=== PATIENT | female | born 1955 | race Caucasian/White ===

== ENCOUNTER → 2017-10-26 12:22 | Outpatient (CLI) | payer OTHER, SELFPAY ==
--- NOTE | 2017-10-26 | DI.MG.S_ITS ---
BILATERAL DIGITAL SCREENING MAMMOGRAM 3D/2D WITH CAD: 10/26/2017 CLINICAL: Routine screening. Comparison is made to exams dated: 10/08/2016 mammogram - [facility], 07/30/2015 mammogram, and 07/11/2014 mammogram - [facility]. The tissue of both breasts is heterogeneously dense. This may lower the sensitivity of mammography. Current study was also evaluated with a Computer Aided Detection (CAD) system. No significant masses, calcifications, or other findings are seen in either breast. There has been no significant interval change. IMPRESSION: NEGATIVE There is no mammographic evidence of malignancy. A 1 year screening mammogram is recommended. This exam was interpreted at Station ID: [id number]. NOTE: For mammograms, a report in lay terms will be sent to the patient. Approximately 15% of breast malignancies will not be visualized mammographically. In the management of a palpable breast mass, a negative mammogram must not discourage biopsy of a clinically suspicious lesion. Electronically Signed By: Krunal forde/cain:10/27/2017 09:44:06 letter sent: Normal Exam ACR BI-RADS Category 1: Negative [id number]
== END ==
PROVIDERS: PCP Family Medicine; Visit Provider Family Medicine
DX: Z12.31 Encounter for screening mammogram for malignant neoplasm of breast (principal)
CPT/HCPCS: 77063; 77067

== ENCOUNTER → 2017-11-08 11:21 | Outpatient (CLI) | payer OTHER, SELFPAY ==
[2017-11-08 13:11] LABS: Alanine Aminotransferase 56 IU/L (9-52); Albumin 4.5 g/dL (3.5-5.0); Albumin Globulin Ratio 1.8 (1.0-2.8); Alkaline Phosphatase 64 U/L (38-126); Aspartate Aminotransferase 43 IU/L (14-36); Bilirubin Total 0.4 mg/dL (0.2-1.3); Bilirubin Unconjugated 0.2 mg/dL (0.0-1.1); Cholesterol 172 mg/dL (140-199); Globulin 2.5 g/dL (1.7-4.1); HDL Cholesterol 61 mg/dL (40-60); HEMOLYSIS < 15 (0-50); LDL Cholesterol Calculated 83 mg/dL (<100); Triglycerides 138 mg/dL (35-150)
== END ==
PROVIDERS: Visit Provider Family Medicine
DX: R79.89 Other specified abnormal findings of blood chemistry (principal); E78.5 Hyperlipidemia, unspecified
CPT/HCPCS: 36415; 80061; 80076

== ENCOUNTER → 2017-12-28 10:40 | Outpatient (CLI) | payer OTHER, SELFPAY ==
[2017-12-28 12:51] LABS: Cholesterol 137 mg/dL (140-199); HDL Cholesterol 52 mg/dL (40-60); LDL Cholesterol Calculated 63 mg/dL (<100); Triglycerides 110 mg/dL (35-150)
[2017-12-30 09:31] LABS: Hepatitis A Antibody IgM NONREACTIVE; Hepatitis Acute Panel Interp 0.01; Hepatitis B Core Antibody IgM NONREACTIVE; Hepatitis B Surface Antigen NONREACTIVE; Hepatitis C Antibody NONREACTIVE
== END ==
PROVIDERS: Visit Provider Family Medicine
DX: R79.89 Other specified abnormal findings of blood chemistry (principal); E78.5 Hyperlipidemia, unspecified
CPT/HCPCS: 36415; 80061; 80074

== ENCOUNTER → 2018-03-24 14:43 | Outpatient (CLI) | payer OTHER, SELFPAY | PROVIDERS: Visit Provider Family Medicine | DX: N63.20 Unspecified lump in the left breast, unspecified quadrant (principal); Z53.20 Procedure and treatment not carried out because of patient's decision for unspecified reasons ==

== ENCOUNTER → 2018-07-30 09:07 | Outpatient (CLI) | payer OTHER, SELFPAY ==
--- NOTE | 2018-07-30 09:09 | DI.RAD.S_ITS ---
PROCEDURE: XR CHEST 2V INDICATIONS: r/o pneumonia TECHNIQUE: 2 views of the chest were acquired. COMPARISON: None. FINDINGS: Surgical changes and devices: None. Lungs and pleura: There is pulmonary vascular prominence bilaterally with a basilar predominance suggestive of pulmonary edema. No pleural effusions or pneumothorax. Mediastinum: Mediastinal contours are normal. Heart size is normal. Bones and chest wall: No suspicious bony abnormalities. Soft tissues appear unremarkable. IMPRESSION: 1. Findings suggestive of nonspecific pulmonary edema which may be due to atypical pneumonia given clinical history. Dictated by: Juan C Ramsey M.D. on 07/30/2018 at 9:33 Approved by: Juan C Ramsey M.D. on 07/30/2018 at 9:34
== END ==
PROVIDERS: Visit Provider Physician Assistant
DX: R05 Cough (principal)
CPT/HCPCS: 71046

== ENCOUNTER 2018-08-12 09:45 | Inpatient (IN) | payer OTHER, SELFPAY ==
[2018-08-12] VITALS (10 sets, daily range): BP systolic 97–144; BP diastolic 52–89; PULSE 73–105; RESP 16–25; TEMP 35.8–36.8; O2SAT 88–96; BMI 31.6
--- NOTE | 2018-08-12 10:01 | DI.RAD.S_ITS ---
PROCEDURE: XR CHEST 2V INDICATIONS: SOB, cough TECHNIQUE: 2 views of the chest were acquired. COMPARISON: [facility], CR, XR CHEST 2V, 07/30/2018, 9:16. FINDINGS: Surgical changes and devices: None. Lungs and pleura: Decreased, mild bibasilar airspace opacity. No pleural effusions or pneumothorax. Mediastinum: Mediastinal contours are normal. Heart size is normal. Bones and chest wall: No suspicious bony abnormalities. Soft tissues appear unremarkable. IMPRESSION: Resolving bibasilar pneumonia. Continued plain film surveillance is recommended to ensure resolution, and to exclude underlying or central malignancy. Dictated by: Moraima Torres M.D. on 08/12/2018 at 10:28 Approved by: Moraima Torres M.D. on 08/12/2018 at 10:28
[2018-08-12] MEDS: ALBUTEROL/IPRATROPIUM 3 ML AMPUL INH ×2 (10:04→18:25)
[2018-08-12] MEDS: methylPREDNISolone 125 MG/2 ML VIAL IV (10:16)
[2018-08-12 10:18] LABS: Add Manual Diff / Slide Review NO; Basophils Absolute Auto 100 /uL (0-100); Basophils Percent Auto 1.1 % (0-2); Eosinophils Absolute Auto 400 /uL (0-450); Eosinophils Percent Auto 4.3 % (2-4); Hematocrit 36.4 % (36-46); Hemoglobin 12.1 g/dL (12.0-16.0); Lymphocytes Absolute Auto 1100 /uL (1100-4500); Lymphocytes Percent Auto 13.7 % (25-40); Mean Corpuscular HGB Conc 33.2 % (30-36); Mean Corpuscular Volume 93.4 fL (80-100); Monocytes Absolute Auto 1300 /uL (0-900); Monocytes Percent Auto 15.7 % (3-14); Neutrophils Absolute Auto 5400 /uL (1500-7000); Neutrophils Percent Auto 65.2 % (50-75); Platelet Count 355 X10^3/uL (150-400); Red Cell Distribution Width 13.6 % (11.6-14.8); White Blood Cell Count 8.3 X10^3/uL (4.5-11.0)
[2018-08-12] MEDS: SODIUM CHLORIDE 0.9% 1,000 ML 1000 ML IV (10:19)
[2018-08-12 10:27] LABS: D Dimer 581 ng/mL (<230)
[2018-08-12 10:30] LABS: Blood Urea Nitrogen 7 mg/dL (7-17); Calcium 9.2 mg/dL (8.4-10.2); Carbon Dioxide 22 mmol/L (22-32); Chloride 106 mmol/L (98-107); Creatine Kinase 85 U/L (30-135); Estimated Glomerular Filt Rate > 60.0 mL/min (>60); Glucose 108 mg/dL (80-110); HEMOLYSIS < 15 (0-50); Potassium 3.9 mmol/L (3.4-5.1); Sodium 138 mmol/L (137-145)
[2018-08-12 10:39] LABS: B Type Natriuretic Peptide < 100 (<100)
[2018-08-12 10:42] LABS: Troponin I < 0.012 ng/mL (0.01-0.034)
[2018-08-12 10:46] LABS: Procalcitonin < 0.05 ng/mL (<0.5)
--- NOTE | 2018-08-12 11:12 | DI.CT.S_ITS ---
PROCEDURE: CT ANGIO CHEST PE PROTOCOL INDICATIONS: SOB< chest pain, hypoxia, elevated DDimer TECHNIQUE: After the administration of intravenous contrast, 2 mm thick sections acquired from the pulmonary apices to the posterior costophrenic angles. 3-dimensional maximum intensity projection (MIP) coronal and sagittal reformats were then acquired through the thorax. For radiation dose reduction, the following was used: automated exposure control, adjustment of mA and/or kV according to patient size. COMPARISON: [facility], CR, XR CHEST 2V, 08/12/2018, 10:15. FINDINGS: Image quality: Excellent. Pulmonary arteries: Pulmonary arterial opacification is suboptimal. No definite filling defects to indicate pulmonary embolus. Lungs and pleura: Moderate bilateral mid and lower lung predominant air space opacity. Confluent ill-defined opacity within the right lung base posteriorly spanning roughly 50 mm. No pleural effusions or pneumothorax. Central and peripheral airways are patent. Mediastinum: Heart size is normal, without pericardial effusion. No evidence of coronary arterial calcification. 13 mm short axis right infrahilar adenopathy. 18 mm short axis right hilar adenopathy. 16 mm short axis subcarinal adenopathy. Thoracic aorta is normal in caliber and enhancement. Esophagus is normal in caliber. Small hiatal hernia. Bones and chest wall: No suspicious bony lesions. Ribs and thoracic spine appear intact throughout. Thyroid gland is within normal limits. No axillary or supraclavicular adenopathy. Abdomen: Visualized upper abdominal solid organs appear normal in the early arterial phase of enhancement. IMPRESSION: 1. Bilateral pneumonia, as seen by plain film. 2. Limited evaluation for pulmonary embolus demonstrating no definite central pulmonary embolus. 3. Mediastinal and hilar adenopathy, presumably representing reactive adenopathy. Confluent right lower lobe density, presumably representing focal pneumonitis. Followup chest CT with contrast in 3 months is recommended to exclude underlying malignancy. 4. Small hiatal hernia. Dictated by: Moraima Torres M.D. on 08/12/2018 at 11:35 Approved by: Moraima Torres M.D. on 08/12/2018 at 11:40
[2018-08-12] MEDS: CEFTRIAXONE 1 GM/50 ML FROZ.PIGGY IV (11:31)
--- NOTE | 2018-08-12 11:57 | ED_ITS ---
HPI - SOB/Dyspnea General Chief Complaint: Shortness of Breath/Dyspnea Stated Complaint: pneumonia/difficulty breathing Time Seen by Provider: 08/12/18 09:48 Source: patient and family Mode of arrival: ambulatory Limitations: no limitations History of Present Illness 63-year-old female former smoker with a history of hypertension and hyper lipidemia presents with worsening shortness of breath and productive cough of yellow sputum. She has had subjective chills. She denies chest pain and is not dizzy nor weak or lightheaded. She was seen and evaluated last week by the walk-in clinic and put on a Z-Enrique. She presents today feeling worse. She does not use home oxygen and has not been hospitalized in the past 15 or 20 years MD Complaint: shortness of breath and cough Onset (ago): hour(s) Context: recent illness Severity: moderate Consistency/Duration: constant Relieving factors: oxygen and rest Exacerbating factors: nothing Known history of: COPD Associated symptoms: fever Related Data Home oxygen amount: none Home Medications Medication Instructions Recorded Confirmed losartan 50 mg PO DAILY #0 05/29/16 08/12/18 zolpidem 5 mg PO BEDTIME PRN #0 05/29/16 08/12/18 metoprolol tartrate 50 mg tablet 50 mg PO QPM 07/30/18 08/12/18 rosuvastatin 10 mg tablet 10 mg PO DAILY 07/30/18 08/12/18 Allergies Allergy/AdvReac Type Severity Reaction Status Date / Time No Known Drug Allergies Allergy Verified 08/12/18 10:18 Review of Systems Constitutional Denies chills, Denies fever(s), Denies lethargy and Denies weakness Eyes Denies change in vision, Denies eye discharge, Denies irritation and Denies loss of vision ENT Ears, Nose, Mouth, and Throat: Denies change in voice, Denies neck pain and Den ies sore throat Cardiovascular Denies chest pain, Denies irregular heart rhythm, Denies lightheadedness, Denies palpitations, Reports dyspnea, Reports dyspnea on exertion and Denies orthopnea Respiratory Reports cough, Reports dyspnea, Reports dyspnea on exertion and Denies wheezing Gastrointestinal Gastrointestinal: Denies abdominal pain, Denies change in bowel habits, Denies diarrhea, Denies nausea and Denies vomiting Genitourinary Denies hematuria, Denies flank pain, Denies urinary incontinence and Denies urinary urgency Musculoskeletal Denies neck pain Integumentary/Breasts Denies pruritus, Denies erythema, Denies rash and Denies wounds Neurologic Denies confusion, Denies loss of vision and Denies weakness Psychiatric Denies anxiety, Denies confusion, Denies depression, Denies homicidal ideation and Denies suicidal ideation Endocrine Denies palpitations Hematologic/Lymphatic Denies easy bruising Allergic/Immunologic Denies wheezing PFSH Social History Smoking Status: Former smoker Social History Smoking Status: Former smoker Exam Narrative Exam Narrative: GENERAL: 63F in obvious distressed, trouble breathing HEAD: Atraumatic. Normocephalic. No temporal or scalp tenderness. EYES: Pupils equal round and reactive. Extraocular motions intact. No scleral icterus. No injection or drainage. ENT: Nose without bleeding, purulent drainage or septal hematoma. Throat without erythema, tonsillar hypertrophy or exudate. Uvula midline. Airway patent. NECK: Trachea midline. No JVD or lymphadenopathy. Supple, nontender, no meningeal signs. CARDIOVASCULAR: Regular rate and rhythm without murmurs, gallops, or rubs. RESPIRATORY: tachypnea, crackles in bases, prolonged expiratory phase GASTROINTESTINAL: Abdomen soft, non-tender, nondistended. No hepato- splenomegaly, or palpable masses. No guarding. EXTREMITIES: No clubbing, cyanosis, or edema. No joint tenderness, effusion, or edema noted. BACK: Nontender without deformity or crepitance. No flank tenderness. NEURO: AOx3. SKIN: No rash or erythema. Initial Vital Signs Initial Vital Signs: Vital Signs Temperature 97.4 F L 08/12/18 10:01 Pulse Rate 105 H 08/12/18 10:01 Respiratory Rate 22 08/12/18 10:01 Blood Pressure 122/89 08/12/18 10:01 Pulse Oximetry 88 L 08/12/18 10:01 Course Orders Ordered: ED Orders 08/12/18 10:01 XR chest 2V Stat 08/12/18 10:05 B Type Natriuretic Peptide Stat Basic Metabolic Panel Stat Complete Blood Count AUTO DIFF Stat D Dimer Stat Lactate (Lactic Acid) Stat Procalcitonin Stat Troponin & CK Cardiac Panel Stat 08/12/18 10:34 Blood Culture Stat 08/12/18 11:12 CT angio chest PE protocol Stat 08/12/18 12:08 Arterial Blood Gas Stat Discontinued Medications Albuterol/Ipratropium (Duoneb) 3 ml INH NOW ONE Stop: 08/12/18 10:02 Last Admin: 08/12/18 10:04 Dose: 3 ml Sodium Chloride (Normal Saline 0.9%) 1,000 mls @ 1,000 mls/hr IV BOLUS ONE Stop: 08/12/18 11:00 Last Admin: 08/12/18 10:19 Dose: 1,000 mls/hr Ceftriaxone Sodium/Dextrose (Rocephin) 1 gm in 50 mls @ 100 mls/hr IV NOW ONE Stop: 08/12/18 11:20 Last Infusion: 08/12/18 12:13 Dose: 0 mls/hr Admin: 08/12/18 11:31 Dose: 100 mls/hr Methylprednisolone (Solu-Medrol 125 Mg Vial) 125 mg IV NOW ONE Stop: 08/12/18 10:02 Last Admin: 08/12/18 10:16 Dose: 125 mg Vital Signs - 8 hr 08/12/18 10:01 08/12/18 10:54 Temperature 97.4 F L Pulse Rate 105 H 90 Respiratory Rate 22 18 Blood Pressure 122/89 Blood Pressure [Right Arm] 136/76 Pulse Oximetry 88 L 96 MDM - SOB/Dyspnea Lab Data Result diagrams: 08/12/18 10:05 08/12/18 10:05 Lab Results 08/12/18 08/12/18 08/12/18 Range/Units 10:05 10:05 10:05 WBC (4.5-11.0) X10^3/uL RBC (4.0-5.2) X10^6/uL Hgb (12.0-16.0) g/dL Hct (36-46) % MCV (80-100) fL MCH (26-34) PG MCHC (30-36) % RDW (11.6-14.8) % Plt Count (150-400) X10^3/uL Neut % (Auto) (50-75) % Lymph % (Auto) (25-40) % [place] % (Auto) (3-14) % Eos % (Auto) (2-4) % Baso % (Auto) (0-2) % Neut # (Auto) (1000-4839) /uL Lymph # (Auto) (8239-9869) /uL [place] # (Auto) (0-900) /uL Eos # (Auto) (0-450) /uL Baso # (Auto) (0-100) /uL D-Dimer 581 H (<230) ng/mL Sodium (137-145) mmol/L Potassium (3.4-5.1) mmol/L Chloride (98-107) mmol/L Carbon Dioxide (22-32) mmol/L BUN (7-17) mg/dL Creatinine (0.52-1.04) mg/dL Estimated GFR (>60) mL/min BUN/Creatinine Ratio (6-22) Glucose (80-110) mg/dL Lactate (0.7-2.1) mmol/L Calcium (8.4-10.2) mg/dL Total Creatine Kinase 85 (30-135) U/L CK-MB (CK-2) TNP CK-MB (CK-2) Rel Index TNP Troponin I < 0.012 (0.01-0.034) ng/mL B-Natriuretic Peptide < 100 (<100) Procalcitonin (<0.5) ng/mL 08/12/18 08/12/18 08/12/18 Range/Units 10:05 10:05 10:05 WBC 8.3 (4.5-11.0) X10^3/uL RBC 3.90 L (4.0-5.2) X10^6/uL Hgb 12.1 (12.0-16.0) g/dL Hct 36.4 (36-46) % MCV 93.4 (80-100) fL MCH 31.0 (26-34) PG MCHC 33.2 (30-36) % RDW 13.6 (11.6-14.8) % Plt Count 355 (150-400) X10^3/uL Neut % (Auto) 65.2 (50-75) % Lymph % (Auto) 13.7 L (25-40) % [place] % (Auto) 15.7 H (3-14) % Eos % (Auto) 4.3 H (2-4) % Baso % (Auto) 1.1 (0-2) % Neut # (Auto) 5400 (8673-1845) /uL Lymph # (Auto) 1100 (3430-3699) /uL [place] # (Auto) 1300 H (0-900) /uL Eos # (Auto) 400 (0-450) /uL Baso # (Auto) 100 (0-100) /uL D-Dimer (<230) ng/mL Sodium 138 (137-145) mmol/L Potassium 3.9 (3.4-5.1) mmol/L Chloride 106 (98-107) mmol/L Carbon Dioxide 22 (22-32) mmol/L BUN 7 (7-17) mg/dL Creatinine 0.70 (0.52-1.04) mg/dL Estimated GFR > 60.0 (>60) mL/min BUN/Creatinine Ratio 10.0 (6-22) Glucose 108 (80-110) mg/dL Lactate (0.7-2.1) mmol/L Calcium 9.2 (8.4-10.2) mg/dL Total Creatine Kinase (30-135) U/L CK-MB (CK-2) CK-MB (CK-2) Rel Index Troponin I (0.01-0.034) ng/mL B-Natriuretic Peptide (<100) Procalcitonin < 0.05 (<0.5) ng/mL 08/12/18 Range/Units 10:05 WBC (4.5-11.0) X10^3/uL RBC (4.0-5.2) X10^6/uL Hgb (12.0-16.0) g/dL Hct (36-46) % MCV (80-100) fL MCH (26-34) PG MCHC (30-36) % RDW (11.6-14.8) % Plt Count (150-400) X10^3/uL Neut % (Auto) (50-75) % Lymph % (Auto) (25-40) % [place] % (Auto) (3-14) % Eos % (Auto) (2-4) % Baso % (Auto) (0-2) % Neut # (Auto) (1271-7840) /uL Lymph # (Auto) (3609-4514) /uL [place] # (Auto) (0-900) /uL Eos # (Auto) (0-450) /uL Baso # (Auto) (0-100) /uL D-Dimer (<230) ng/mL Sodium (137-145) mmol/L Potassium (3.4-5.1) mmol/L Chloride (98-107) mmol/L Carbon Dioxide (22-32) mmol/L BUN (7-17) mg/dL Creatinine (0.52-1.04) mg/dL Estimated GFR (>60) mL/min BUN/Creatinine Ratio (6-22) Glucose (80-110) mg/dL Lactate 1.0 (0.7-2.1) mmol/L Calcium (8.4-10.2) mg/dL Total Creatine Kinase (30-135) U/L CK-MB (CK-2) CK-MB (CK-2) Rel Index Troponin I (0.01-0.034) ng/mL B-Natriuretic Peptide (<100) Procalcitonin (<0.5) ng/mL Imaging Data CT scan - chest: Radiologist's impression: [address] [address] [address] Scan Report Signed Patient: Alix Hernandez EMR#: [id number] : 6Acct:[id number] Age/Sex: 63 / FDate of Service: 08/12/18 Loc: ED Accession Number: [id number] Procedure: CT angio chest PE protocol Ordering Provider: Abdoulaye Hayden D.O. PROCEDURE: CT ANGIO CHEST PE PROTOCOL INDICATIONS: SOB< chest pain, hypoxia, elevated DDimer TECHNIQUE: After the administration of intravenous contrast, 2 mm thick sections acquired from the pulmonary apices to the posterior costophrenic angles. 3-dimensional maximum intensity projection (MIP) coronal and sagittal reformats were then acquired through the thorax. For radiation dose reduction, the following was used: automated exposure control, adjustment of mA and/or kV according to patient size. COMPARISON: [facility], CR, XR CHEST 2V, 08/12/2018, 10:15. FINDINGS: Image quality: Excellent. Pulmonary arteries: Pulmonary arterial opacification is suboptimal. No definite filling defects to indicate pulmonary embolus. Lungs and pleura: Moderate bilateral mid and lower lung predominant air space opacity. Confluent ill-defined opacity within the right lung base posteriorly spanning roughly 50 mm. No pleural effusions or pneumothorax. Central and peripheral airways are patent. Mediastinum: Heart size is normal, without pericardial effusion. No evidence of coronary arterial calcification. 13 mm short axis right infrahilar adenopathy. 18 mm short axis right hilar adenopathy. 16 mm short axis subcarinal adenopathy. Thoracic aorta is normal in caliber and enhancement. Esophagus is normal in caliber. Small hiatal hernia. Bones and chest wall: No suspicious bony lesions. Ribs and thoracic spine appear intact throughout. Thyroid gland is within normal limits. No axillary or supracl avicular adenopathy. Abdomen: Visualized upper abdominal solid organs appear normal in the early arterial phase of enhancement. IMPRESSION: 1. Bilateral pneumonia, as seen by plain film. 2. Limited evaluation for pulmonary embolus demonstrating no definite central pulmonary embolus. 3. Mediastinal and hilar adenopathy, presumably representing reactive adenopathy. Confluent right lower lobe density, presumably representing focal pneumonitis. Followup chest CT with contrast in 3 months is recommended to exclude underlying malignancy. 4. Small hiatal hernia. Dictated by: Moraima Torres M.D. on 08/12/2018 at 11:35 Approved by: Moraima Torres M.D. on 08/12/2018 at 11:40 Discharge Plan Departure Patient Disposition: Admitted As Inpatient Clinical Impression: Acute respiratory failure with hypoxia Community acquired pneumonia Qualifiers: Lung location: lower lobe of lung
--- NOTE | 2018-08-12 12:13 | PC.NURSE ---
Pt requested to get up to bathroom. Offered commode at this time. While pt up to commode on 4L, Pt's oxygen dropped to 84%. After getting back to bed was up to 92% after about 3 minutes. Provider ordered O2 to be removed for ABG. Pt dropped to as low as 84% on room air.
[2018-08-12 12:25] LABS: HCO3 ABG 19 mmol/L (22-26); Oxygen Saturation ABG 88 % (95-100); PCO2 ABG 28.7 mmHg (35-45); PO2 ABG 51 mmHg (80-100); TCO2 ABG 20 mmol/L (21-31); pH ABG 7.43 (7.35-7.45)
[2018-08-12 12:26] LABS: Fractionated Inspired Oxygen 21
--- NOTE | 2018-08-12 13:19 | PM.HP.1 ---
History of Present Illness Date Patient Seen: 08/12/18 Time Patient Seen: 13:19 Chief complaint: pneumonia/difficulty breathing Narrative: This is a 63-year-old female who presents with bibasilar pneumonia. She has been coughing for about 1 month with fevers up to 102.5, chills, sweats, pleuritic chest pain. A week ago she was started on azithromycin which she has taken without benefit so far. On presentation to the emergency department she was 84% on room air, rising to 93% on 4 L nasal cannula but dropping quickly when she sits up. Chest x-ray shows bibasilar pneumonia. The chest CT shows no PE but a follow-up CT in 3 months is recommended to look at these areas of pneumonia. She is a former smoker and is wheezing heavily, consistent with previously undiagnosed COPD. The fevers, cough have all improved but the extreme fatigue and dyspnea have become ?horrible? in the last week. Patient History Medical History Hypercholesteremia (Acute) Hypertension (Acute) Surgical History (Updated 08/12/18 @ 20:07 by Ruthie Bains MD) H/O foot surgery (Acute) History of bilateral tubal ligation (Acute) Hx laparoscopic cholecystectomy (Acute) Family History (Updated 08/12/18 @ 20:07 by Ruthie Bains MD) Father Lung cancer Mother Lung cancer Social History household members: spouse Smoking Status: Former smoker alcohol intake: current Family & Social History Family History (Updated 08/12/18 @ 20:07 by Ruthie Bains MD) Father Lung cancer Mother Lung cancer Social History: Her is her primary backup decision maker. She says she is full code except for wanting to avoid prolonged life support and would leave that decision up to her . She moved to [place] 2 years ago and still has her primary care physician Dr. Arelis Hurd at [place]. She is retired from working at [employer]. She stopped smoking 8 years ago. She drinks 1-2 glasses of wine per day. She denies marijuana. Safety & Behavioral: Feels Safe in Current Yes Environment Been Physically Hurt or No Threatened By a Person Tobacco & Substance use: Smoking Status Former smoker alcohol intake frequency a few times a month Substance Use Type does not use Meds Home Medications Medication Instructions Recorded Confirmed Type losartan 50 mg PO DAILY #0 05/29/16 08/12/18 History zolpidem 5 mg PO BEDTIME PRN #0 05/29/16 08/12/18 History metoprolol tartrate 50 mg tablet 50 mg PO QPM 07/30/18 08/12/18 History rosuvastatin 10 mg tablet 10 mg PO DAILY 07/30/18 08/12/18 History Allergies Allergy/AdvReac Type Severity Reaction Status Date / Time No Known Drug Allergies Allergy Verified 08/12/18 10:18 Review of Systems Review of Systems Positive for shortness of breath, fevers, chills, sweats, pleuritic chest pain, fatigue. Negative for nausea, vomiting, rashes, abdominal pain, bleeding, dysuria, joint pain, seizures, headaches, trouble walking, new allergies, sore throat. All systems reviewed & are unremarkable except as noted in HPI and below Exam Vital Signs (past 8 hours): - 08/12/18 10:01 08/12/18 10:54 Temperature 97.4 F L Pulse Rate 105 H 90 Respiratory Rate 22 18 Blood Pressure 122/89 Blood Pressure [Right Arm] 136/76 Pulse Oximetry 88 L 96 Oxygen Delivery Method Nasal Cannula Oxygen Flow Rate 4 Narrative Exam Narrative: She is alert and oriented x3. There is no apparent distress. Pupils are equally round and reactive to light and accommodation. Extraocular muscles are intact. Sclerae are pink and nonicteric. There is no thyromegaly. No carotid bruits are heard. JVD is less 6 cm No lymph nodes are felt head, neck, supraclavicular area. Heart is regular rate and rhythm without murmur. Lungs have wheezes throughout and crackles at the left base. Abdomen is soft, bowel sounds positive, no organomegaly, nontender. Extremities have no ankle edema. Skin no rash, jaundice, bruising. Neuro exam. Cranial nerves 2-12 tested intact. DTRs are symmetric bilaterally. Motor function is 5/5 throughout. Objective Labs Result Diagrams: 08/12/18 10:08/12/18 10:05 Labs: Laboratory Results - last 24 hr 08/12/18 08/12/18 08/12/18 10:05 10:05 10:05 WBC RBC Hgb Hct MCV MCH MCHC RDW Plt Count Neut % (Auto) Lymph % (Auto) [place] % (Auto) Eos % (Auto) Baso % (Auto) Neut # (Auto) Lymph # (Auto) [place] # (Auto) Eos # (Auto) Baso # (Auto) D-Dimer 581 H ABG pH ABG pCO2 ABG pO2 ABG HCO3 ABG Total CO2 ABG O2 Saturation ABG Base Excess FiO2 Sodium Potassium Chloride Carbon Dioxide BUN Creatinine Estimated GFR BUN/Creatinine Ratio Glucose Lactate Calcium Total Creatine Kinase 85 CK-MB (CK-2) TNP CK-MB (CK-2) Rel Index TNP Troponin I < 0.012 B-Natriuretic Peptide < 100 Procalcitonin 08/12/18 08/12/18 08/12/18 10:05 10:05 10:05 WBC 8.3 RBC 3.90 L Hgb 12.1 Hct 36.4 MCV 93.4 MCH 31.0 MCHC 33.2 RDW 13.6 Plt Count 355 Neut % (Auto) 65.2 Lymph % (Auto) 13.7 L [place] % (Auto) 15.7 H Eos % (Auto) 4.3 H Baso % (Auto) 1.1 Neut # (Auto) 5400 Lymph # (Auto) 1100 [place] # (Auto) 1300 H Eos # (Auto) 400 Baso # (Auto) 100 D-Dimer ABG pH ABG pCO2 ABG pO2 ABG HCO3 ABG Total CO2 ABG O2 Saturation ABG Base Excess FiO2 Sodium 138 Potassium 3.9 Chloride 106 Carbon Dioxide 22 BUN 7 Creatinine 0.70 Estimated GFR > 60.0 BUN/Creatinine Ratio 10.0 Glucose 108 Lactate Calcium 9.2 Total Creatine Kinase CK-MB (CK-2) CK-MB (CK-2) Rel Index Troponin I B-Natriuretic Peptide Procalcitonin < 0.05 08/12/18 08/12/18 10:05 12:08 WBC RBC Hgb Hct MCV MCH MCHC RDW Plt Count Neut % (Auto) Lymph % (Auto) [place] % (Auto) Eos % (Auto) Baso % (Auto) Neut # (Auto) Lymph # (Auto) [place] # (Auto) Eos # (Auto) Baso # (Auto) D-Dimer ABG pH 7.43 ABG pCO2 28.7 L ABG pO2 51 L ABG HCO3 19 L ABG Total CO2 20 L ABG O2 Saturation 88 L ABG Base Excess -5.0 L FiO2 21 Sodium Potassium Chloride Carbon Dioxide BUN Creatinine Estimated GFR BUN/Creatinine Ratio Glucose Lactate 1.0 Calcium Total Creatine Kinase CK-MB (CK-2) CK-MB (CK-2) Rel Index Troponin I B-Natriuretic Peptide Procalcitonin Assessment & Plan Assessment & Plan narrative: Bibasilar pneumonia -change from IV ceftriaxone/azithromycin to IV Piperocillin/tazobactam. -respiratory panel ordered Acute hypoxic respiratory failure -oxygen by nasal cannula, high flow/BiPAP as needed. She is full code. -respiratory therapy will be following closely. Apparent new diagnosis of COPD -begin IV Solu-Medrol -begin albuterol/Atrovent Hypertension -continue losartan, metoprolol. Hyperlipidemia -continue rosuvastatin
[2018-08-12] MEDS: AZITHROMYCIN 500 MG in DEXTROSE 5% IN WATER 250 ML IV (14:23)
[2018-08-12] MEDS: DEXTROSE 5%-0.9% NS 1,000 ML 100 ML IV (14:23)
--- NOTE | 2018-08-12 14:50 | PC.ADMIT ---
[id number] [facility] Admission Note: The patient,Alix Hernandez,63 y/o, was given written information regarding hospital policies, unit procedures and contact persons. Patient's smoking status: Former smoker. Vital Signs - 8 hr 08/12/18 10:01 08/12/18 10:54 08/12/18 14:11 Temperature 97.4 F L 97.9 F Pulse Rate 105 H 90 76 Respiratory Rate 22 18 25 H Blood Pressure 122/89 141/60 H Blood Pressure [Right Arm] 136/76 Pulse Oximetry 88 L 96 95 08/12/18 14:13 Temperature Pulse Rate Respiratory Rate Blood Pressure Blood Pressure [Right Arm] Pulse Oximetry 95 PATIENT ALERT ORIENTED X3. NO RESPIRATORY DISTRESS. SAT 95% ON 5L/NC W/ HUMIDIFICATION. REPORTS COUGH W/ YELLOW SPUTUM. ADMISSION ASSESSMENT COMPLETED. MRSA SWAB SENT. VSS.
[2018-08-12] MEDS: METOPROLOL IR 50 MG TABLET PO (17:25)
[2018-08-12] MEDS: methylPREDNISolone 125 MG/2 ML VIAL 60 MG IV (20:35)
[2018-08-12] MEDS: PIPERACILLIN-TAZO 3.375 GM/50 ML FROZ.PIGGY IV (20:35)
[2018-08-12] MEDS: ZOLPIDEM 5 MG TABLET PO (22:48)
[2018-08-13] VITALS (12 sets, daily range): BP systolic 126–135; BP diastolic 74–82; PULSE 64–78; RESP 17–21; TEMP 36.1–36.8; O2SAT 91–97
[2018-08-13] MEDS: DEXTROSE 5%-0.9% NS 1,000 ML 100 ML IV ×2 (01:37→13:26)
[2018-08-13] MEDS: PIPERACILLIN-TAZO 3.375 GM/50 ML FROZ.PIGGY IV ×4 (02:19→20:33)
[2018-08-13] MEDS: methylPREDNISolone 125 MG/2 ML VIAL 60 MG IV ×3 (04:32→20:33)
[2018-08-13 05:28] LABS: Add Manual Diff / Slide Review NO; Basophils Absolute Auto 0 /uL (0-100); Basophils Percent Auto 0.4 % (0-2); Eosinophils Absolute Auto 0 /uL (0-450); Eosinophils Percent Auto 0.1 % (2-4); Hematocrit 33.4 % (36-46); Hemoglobin 11.2 g/dL (12.0-16.0); Lymphocytes Absolute Auto 1100 /uL (1100-4500); Lymphocytes Percent Auto 11.6 % (25-40); Mean Corpuscular HGB Conc 33.4 % (30-36); Mean Corpuscular Hemoglobin 31.2 PG (26-34); Mean Corpuscular Volume 93.2 fL (80-100); Monocytes Absolute Auto 600 /uL (0-900); Neutrophils Absolute Auto 8000 /uL (1500-7000); Neutrophils Percent Auto 81.9 % (50-75); Platelet Count 359 X10^3/uL (150-400); Red Blood Cell Count 3.58 X10^6/uL (4.0-5.2); Red Cell Distribution Width 13.6 % (11.6-14.8); White Blood Cell Count 9.8 X10^3/uL (4.5-11.0)
[2018-08-13 05:41] LABS: Blood Urea Nitrogen 6 mg/dL (7-17); Calcium 8.7 mg/dL (8.4-10.2); Carbon Dioxide 20 mmol/L (22-32); Chloride 109 mmol/L (98-107); Estimated Glomerular Filt Rate > 60.0 mL/min (>60); Glucose 218 mg/dL (80-110); HEMOLYSIS < 15 (0-50); Potassium 3.8 mmol/L (3.4-5.1); Sodium 139 mmol/L (137-145)
--- NOTE | 2018-08-13 06:43 | PC.NURSE ---
Patient slept most of night, no respiratory distress, cough has decreased, and patient states she feels a little better since coming in here On 5L HFNC, SpO2 90-94%, rhonchi and crackles throughout. Bradycardic in 50s while asleep. Denies pain. Respiratory nasal panel collected and sent.
[2018-08-13] MEDS: ALBUTEROL/IPRATROPIUM 3 ML AMPUL INH ×4 (07:37→19:42)
[2018-08-13 08:01] LABS: Adenovirus Not Detected (Not Detect); Bordetella pertussis Not Detected (Not Detect); Chlamydophila pneumoniae Not Detected (Not Detect); Coronavirus 229E Not Detected (Not Detect); Coronavirus HKU1 Not Detected (Not Detect); Coronavirus NL 63 Not Detected (Not Detect); Coronavirus OC43 Not Detected (Not Detect); Human Metapneumovirus Not Detected (Not Detect); Human Rhinovirus/Enterovirus Not Detected (Not Detect); Influenza A Not Detected (Not Detect); Influenza B Not Detected (Not Detect); Mycoplasma pneumoniae Not Detected (Not Detect); Parainfluenza Virus 1 Not Detected (Not Detect); Parainfluenza Virus 2 Not Detected (Not Detect); Parainfluenza Virus 3 Not Detected (Not Detect); Parainfluenza Virus 4 Not Detected (Not Detect); Respiratory Syncytial Virus Not Detected (Not Detect)
[2018-08-13] MEDS: ROSUVASTATIN 10 MG TABLET PO (09:21)
[2018-08-13] MEDS: LOSARTAN 50 MG TABLET PO (09:22)
[2018-08-13] MEDS: ENOXAPARIN 40 MG/0.4 ML SYRINGE SUBCUT (09:22)
--- NOTE | 2018-08-13 11:20 | CM.DANOTE ---
DCP: Case received, EMR reviewed and met with patient. Introduced self and role. Was able to obtain baseline information from patient, regarding health. DCP template completed with information currently available. Patient is a 63 year old female who admitted yesterday afternoon to the care of the hospitalist team. PCP: Dr. Narayan in [place]. Payer: confirmed: Donald [employer]. Patient came to hospital secondary to difficulty breathing. She holds diagnosis of Bilateral Pneumonia. She is currently on oxygen. Met briefly with patient, alert and oriented. present in room. She stated that her primary doctor is in [place], and has been health, and had not had to see him very often. She also stated that her gets his care in [place] as well. Patient is independent at home. P: DCP to continue to follow. Anticipate that patient may be here for a couple more days. Plan is for home when stable. Shira Giles RN/Digital Media Director
--- NOTE | 2018-08-13 18:01 | PC.NURSE ---
1650- assumed care of pt from ICU. pt transferred. pt ambulates steady gait. uses call rebollar when appropriate. denies pain. belongings and call light within reach. will continue to monitor. on cont pox.
[2018-08-13] MEDS: METOPROLOL IR 50 MG TABLET PO (18:21)
--- NOTE | 2018-08-13 20:57 | PM.PN.1 ---
Subjective Date Patient Seen: 08/13/18 Interval history: This is a 63-year-old female former smoker admitted with bilateral pneumonia and failed outpatient therapy with full course of Z-Enrique. She had been sick for about a month with fevers and chills and pleuritic chest pain. Patient notes definite improvement since admission with less cough and less pleuritic chest pain. O2 requirements also improving. Exam Vital Signs (past 8 hours): - 08/13/18 14:32 08/13/18 16:10 08/13/18 16:45 Pulse Rate 72 Respiratory Rate Pulse Oximetry 91 96 91 08/13/18 19:43 Pulse Rate 64 Respiratory Rate 17 Pulse Oximetry 93 Oxygen Delivery Method Nasal Cannula Oxygen Flow Rate 2.5 Narrative Exam Narrative: General: Alert very pleasant female in no acute distress Lungs: Bibasilar crackles and faint wheeze in upper lungs Heart: Regular rhythm Extremities: No edema Neurological: Nonfocal Skin: No rash Objective Labs Result Diagrams: 08/13/18 04:53 08/13/18 04:53 Labs: Laboratory Results - last 24 hr 08/12/18 08/13/18 08/13/18 05:00 04:53 04:53 WBC 9.8 RBC 3.58 L Hgb 11.2 L Hct 33.4 L MCV 93.2 MCH 31.2 MCHC 33.4 RDW 13.6 Plt Count 359 Neut % (Auto) 81.9 H Lymph % (Auto) 11.6 L [place] % (Auto) 6.0 Eos % (Auto) 0.1 L Baso % (Auto) 0.4 Neut # (Auto) 8000 H Lymph # (Auto) 1100 [place] # (Auto) 600 Eos # (Auto) 0 Baso # (Auto) 0 Sodium 139 Potassium 3.8 Chloride 109 H Carbon Dioxide 20 L BUN 6 L Creatinine 0.60 Estimated GFR > 60.0 BUN/Creatinine Ratio 10.0 Glucose 218 H D Calcium 8.7 Chlamy pneumoniae PCR Not detected Adenovirus (PCR) Not detected B.parapertussis DNA PCR Not detected Coronavirus OC43 (PCR) Not detected Coronavirus HKU1 (PCR) Not detected Coronavirus 229E (PCR) Not detected Coronavirus NL63 (PCR) Not detected Human Metapneumovir PCR Not detected Influenza Type A (PCR) Not detected Influenza Type B (PCR) Not detected M. pneumoniae (PCR) Not detected Parainfluenza 1 (PCR) Not detected Parainfluenza 2 (PCR) Not detected Parainfluenza 3 (PCR) Not detected Parainfluenza 4 (PCR) Not detected RSV (PCR) Not detected Entero/Rhino (PCR) Not detected Assessment & Plan Assessment & Plan narrative: This is a 63-year-old female former smoker admitted with bilateral pneumonia and failed outpatient therapy with full course of Z-Enrique. She had been sick for about a month with fevers and chills and pleuritic chest pain. 1. Bibasilar pneumonia -subacute presentation of 1 month illness and failed Z-Enrique therapy -CTA showing bilateral pneumonia, mediastinal and hilar adenopathy, presumably reactive, confluency right lower lobe density presumably representing focal pneumonitis but follow-up CT with contrast recommended in 3 months to exclude underlying malignancy -patient is symptomatically improving -blood cultures negative -continue IV Piperocillin/tazobactam. -patient should have repeat contrast chest CT in 3 months to rule out underlying lung mass 2. Acute hypoxic respiratory failure -improving, currently on 2.5 L O2 with sat 97% -continue O2 nasal cannula. She is full code. 3. Apparent new diagnosis of COPD with exacerbation -continue IV Solu-Medrol 60 mg q.8 hours -continue albuterol/ipratropium nebulizer treatment 4. Hypertension -continue losartan, metoprolol. 5. Hyperlipidemia -continue rosuvastatin Patient with improving hospital course and hopefully can discharge in the next 1-2 days. Quality VTE Deep Vein Thrombosis/Pulmonary Embolism Present on Admission: No
[2018-08-14] VITALS (10 sets, daily range): BP systolic 116–142; BP diastolic 62–86; PULSE 49–74; RESP 15–21; TEMP 36.2–36.9; O2SAT 86–97
[2018-08-14] MEDS: ZOLPIDEM 5 MG TABLET PO ×2 (01:51→23:51)
[2018-08-14] MEDS: PIPERACILLIN-TAZO 3.375 GM/50 ML FROZ.PIGGY IV ×5 (02:00→23:52)
--- NOTE | 2018-08-14 02:57 | PC.NURSE ---
Bulb Assembler Note: 0030: Awake, resting in bed. Vital signs stable. Remains on O2 2L/humidified NC. IVs in place in rt wrist and lt upper forearm. Pt denies shortness of breath at this time. She denies discomfort. 0130: Medicated for sleep with Ambien 5mg po.
[2018-08-14] MEDS: methylPREDNISolone 125 MG/2 ML VIAL 60 MG IV ×2 (06:39→23:52)
[2018-08-14] MEDS: ALBUTEROL/IPRATROPIUM 3 ML AMPUL INH ×4 (07:40→18:22)
[2018-08-14] MEDS: ENOXAPARIN 40 MG/0.4 ML SYRINGE SUBCUT (08:33)
[2018-08-14] MEDS: LOSARTAN 50 MG TABLET PO (08:34)
[2018-08-14] MEDS: SODIUM CHLORIDE 0.9% FLUSH 10 ML IV ×2 (08:34→21:13)
[2018-08-14] MEDS: ROSUVASTATIN 10 MG TABLET PO (08:34)
[2018-08-14 13:53] LABS: Alanine Aminotransferase 90 IU/L (9-52); Albumin 3.5 g/dL (3.5-5.0); Albumin Globulin Ratio 1.2 (1.0-2.8); Alkaline Phosphatase 75 U/L (38-126); Aspartate Aminotransferase 57 IU/L (14-36); Bilirubin Total 0.3 mg/dL (0.2-1.3); Blood Urea Nitrogen 12 mg/dL (7-17); Calcium 9.4 mg/dL (8.4-10.2); Carbon Dioxide 23 mmol/L (22-32); Chloride 104 mmol/L (98-107); Estimated Glomerular Filt Rate > 60.0 mL/min (>60); Glucose 169 mg/dL (80-110); HEMOLYSIS < 15 (0-50); Potassium 3.3 mmol/L (3.4-5.1); Sodium 137 mmol/L (137-145); Total Protein 6.5 g/dL (6.3-8.2)
[2018-08-14 13:54] LABS: Hemoglobin A1C% w Est Avg Glu 5.9 % (4.0-6.0)
[2018-08-14] MEDS: guaiFENesin ER 600 MG TAB 1200 MG PO ×2 (14:03→21:14)
[2018-08-14 14:11] LABS: Procalcitonin < 0.05 ng/mL (<0.5)
--- NOTE | 2018-08-14 14:59 | PC.NURSE ---
Resp: This am was very sob, O2 sat down to the mid to high 80's. Heart rate 45-52 average. review of record shows no low heart rates however pt is reporting she has been low. Called [facility] Radha YAÑEZ who confirmed pt was in the 40's yesterday and 50's, heart rate did go back up during the day. Pt reports no c/p or heart problems. Takes for bp. O2 increased this am and RT called to treat and eval. They did give pt a neb and between that and increased O2 sats average about 90%. Pt seen later by Dr. Dong and she was notified of heart rate, o2 sats, cough, see new orders. discussed with pt her scan results and poc. O2 sats are to be 88% or greater. Have been able to titrate O2 back down to 2L and pt hopes it can go down even further. Pt understands we will keep monitoring her vital signs because she is worried about her bp getting to high being off the metoprolol. Pt reports she is feeling better this afternoon. Cont w/poc.
--- NOTE | 2018-08-14 18:14 | PM.PN.1 ---
Subjective Date Patient Seen: 08/14/18 Interval history: Alix Hernandez is a 63-year-old female with a past medical history significant for hypertension, hyperlipidemia, insomnia and former smoker admitted with bilateral pneumonia and failed outpatient therapy with full course of Z-Enrique. She had been sick for about a month with fevers, chills, and pleuritic chest pain. The patient is resting in bed comfortably and in no acute distress. She continues to feel improvement in her cough with less frequency and sputum production since admission. She continues to be on 2-3L of oxygen. She reports her appetite is fair. She reports she recently traveled in the last month to [place]. She stayed in the [facility]. She denies valley fever. She reports she has been sick just after she returned from that trip 4-5 weeks ago. She denies headache, chest pain, abdominal pain, nausea, vomiting, fever, chills, dysuria, diarrhea or constipation. She is voiding without difficulty. She has not had a BM since admission and implemented a bowel regimen. She is up ambulating with assistance. Exam Vital Signs (past 8 hours): - 08/14/18 11:12 08/14/18 15:07 Pulse Rate 52 L 69 Respiratory Rate 15 20 Pulse Oximetry 95 Oxygen Delivery Method Nasal Cannula Oxygen Flow Rate 3 Narrative Exam Narrative: General: Middle age female lying in bed and in no acute distress, well-developed, well-nourished, appropriately interactive. HEENT: Normocephalic, atraumatic. External ears without defect. Pupils equal, round, and reactive to light and accommodation. Anicteric sclerae, moist conjunctivae, and no lid lag. Oropharynx free of erythema and cobble stoning with moist mucosa. Neck: Supple with full range of motion. No lymphadenopathy or thyromegaly. Cardiovascular: Regular rate and rhythm without murmurs, rubs, or gallops appreciated. Pulmonary: Diminished and very tight throughout but clear to auscultation bilaterally without crackles, wheezes, or rhonchi. Normal respiratory effort with no use of accessory muscles. Abdomen: Soft, bowel sounds present, nontender, nondistended. No hepatosplenomegaly or masses appreciated. Extremities: No clubbing, cyanosis, or edema. Skin: Normal temperature, turgor, and texture; no rash, ulcers, or subcutaneous nodules appreciated. Neurological: Cranial nerves grossly intact. Psychiatric: Normal mood and affect. Alert and oriented to person, place, and time. Objective Labs Result Diagrams: 08/15/18 06:03 08/15/18 06:03 Labs: Laboratory Results - last 24 hr 08/14/18 08/14/18 08/14/18 13:15 13:15 13:15 Sodium 137 Potassium 3.3 L Chloride 104 Carbon Dioxide 23 BUN 12 Creatinine 0.80 Estimated GFR > 60.0 BUN/Creatinine Ratio 15.0 Glucose 169 H Hemoglobin A1c 5.9 Calcium 9.4 Total Bilirubin 0.3 AST 57 H ALT 90 H Alkaline Phosphatase 75 Total Protein 6.5 Albumin 3.5 Globulin 3.0 Albumin/Globulin Ratio 1.2 Procalcitonin < 0.05 Assessment & Plan Assessment & Plan narrative: Alix Hernandez is a 63-year-old female with a past medical history significant for hypertension, hyperlipidemia, insomnia and former smoker admitted with bilateral pneumonia and failed outpatient therapy with full course of Z-Enrique. She had been sick for about a month with fevers, chills, and pleuritic chest pain. 1. Acute bibasilar pneumonia, present on admission. Active. -Subacute presentation of 1 month illness and failed Z-Enrique therapy. -CTA showing bilateral pneumonia, mediastinal and hilar adenopathy, presumably reactive, confluency right lower lobe density presumably representing focal pneumonitis but follow-up CT with contrast recommended in 3 months to exclude underlying malignancy. -Ordered complete pneumonia workup including: Respiratory viral PCR negative. Strep pneumoniae and legionella urine antigens, pending as initially not ordered. Sputum culture, pending as not initially ordered. Blood cultures x2 have no growth to date. -Continue Zosyn 3.375 g IV every 8 hours for broad spectrum coverage. -Patient recently visited [place] close to (north of) [facility], presented without leukocytosis or positive infectious markers, had 4.8% eosinophilia on initial CBC, CT demonstrated bilateral mediastinal and hilar adenopathy, therefore, ordered Coccidioides Ab and Cryptococcus Ag, pending /send out. If not improving will treat empirically with fluconazole or itraconazole. Discussed with infectious disease from [facility] who agrees with plan. 2. Acute hypoxemic respiratory failure, present on admission. Active. -Secondary to underlying lung infection. -Currently on 2-3 L. Oxygen saturation goal 88% and will titrate off as tolerated. -Consulted respiratory therapy for evaluation and treatment. 3. Newly diagnosis COPD with acute exacerbation, present on admission. Active. -Continue IV Solu-Medrol decreased from 60 mg every 8 hours to every 12 hours. -Continue DuoNeb every 4 hours while awake and albuterol nebs every 2 hours as needed for shortness of breath. Added pulmicort 2 puffs daily. -Consulted respiratory therapy for evaluation and treatment. Ordered acapella and Mucinex 1200 mg twice daily to aide in mucus expectoration. -Also started montelukast 10 mg daily for season allergy component of airway disease. -Held beta chivo which may help breathing as below. 4. Acute hypokalemia, present on admission. Active. -Likely dilutional. -Ordered potassium chloride 40 mEQ PO x 1. Continue to monitor and replete as needed. 5. Hypertension, chronic, present on admission. Stable. -Continue losartan 50 mg daily. Held metoprolol tartrate 50 mg daily at bedtime as patient became significantly bradycardic on tele 40's last night plus may potentially worsen breathing. 6. Hyperlipidemia, chronic, present on admission. Stable. -Continue rosuvastatin 10 mg daily. Disposition: Likely to discharge home in several days depending on improvement in pneumonia with treatment. Quality VTE Deep Vein Thrombosis/Pulmonary Embolism Present on Admission: No
--- NOTE | 2018-08-14 18:55 | P.PN_ITS ---
Subjective Date Patient Seen: 08/14/18 Interval history: Alix Hernandez is a 63-year-old female with a past medical history significant for hypertension, hyperlipidemia, insomnia and former smoker admitted with b ilateral pneumonia and failed outpatient therapy with full course of Z-Enrique. She had been sick for about a month with fevers, chills, and pleuritic chest pain. The patient is resting in bed comfortably and in no acute distress. She continues to feel improvement in her cough with less frequency and sputum production since admission. She continues to be on 2-3L of oxygen. She reports her appetite is fair. She reports she recently traveled in the last month to [place]. She stayed in the [facility]. She denies valley fever. She reports she has been sick just after she returned from that trip 4-5 weeks ago. She denies headache, chest pain, abdominal pain, nausea, vomiting, fever, chills, dysuria, diarrhea or constipation. She is voiding without difficulty. She has not had a BM since admission and implemented a bowel regimen. She is up ambulating with assistance. Exam Vital Signs (past 8 hours): - 08/14/18 11:12 08/14/18 15:07 Pulse Rate 52 L 69 Respiratory Rate 15 20 Pulse Oximetry 95 Oxygen Delivery Method Nasal Cannula Oxygen Flow Rate 3 Narrative Exam Narrative: General: Middle age female lying in bed and in no acute distress, well- developed, well-nourished, appropriately interactive. HEENT: Normocephalic, atraumatic. External ears without defect. Pupils equal, round, and reactive to light and accommodation. Anicteric sclerae, moist conjunctivae, and no lid lag. Oropharynx free of erythema and cobble stoning with moist mucosa. Neck: Supple with full range of motion. No lymphadenopathy or thyromegaly. Cardiovascular: Regular rate and rhythm without murmurs, rubs, or gallops appreciated. Pulmonary: Diminished and very tight throughout but clear to auscultation bilate rally without crackles, wheezes, or rhonchi. Normal respiratory effort with no use of accessory muscles. Abdomen: Soft, bowel sounds present, nontender, nondistended. No hepatosplenomegaly or masses appreciated. Extremities: No clubbing, cyanosis, or edema. Skin: Normal temperature, turgor, and texture; no rash, ulcers, or subcutaneous nodules appreciated. Neurological: Cranial nerves grossly intact. Psychiatric: Normal mood and affect. Alert and oriented to person, place, and time. Objective Labs Result Diagrams: 08/15/18 06:03 08/15/18 06:03 Labs: Laboratory Results - last 24 hr 08/14/18 08/14/18 08/14/18 13:15 13:15 13:15 Sodium 137 Potassium 3.3 L Chloride 104 Carbon Dioxide 23 BUN 12 Creatinine 0.80 Estimated GFR > 60.0 BUN/Creatinine Ratio 15.0 Glucose 169 H Hemoglobin A1c 5.9 Calcium 9.4 Total Bilirubin 0.3 AST 57 H ALT 90 H Alkaline Phosphatase 75 Total Protein 6.5 Albumin 3.5 Globulin 3.0 Albumin/Globulin Ratio 1.2 Procalcitonin < 0.05 Assessment & Plan Assessment & Plan narrative: Alix Hernandez is a 63-year-old female with a past medical history significant for hypertension, hyperlipidemia, insomnia and former smoker admitted with bilateral pneumonia and failed outpatient therapy with full course of Z-Enrique. She had been sick for about a month with fevers, chills, and pleuritic chest pain. 1. Acute bibasilar pneumonia, present on admission. Active. -Subacute presentation of 1 month illness and failed Z-Enrique therapy. -CTA showing bilateral pneumonia, mediastinal and hilar adenopathy, presumably reactive, confluency right lower lobe density presumably representing focal pneumonitis but follow-up CT with contrast recommended in 3 months to exclude underlying malignancy. -Ordered complete pneumonia workup including: Respiratory viral PCR negative. Strep pneumoniae and legionella urine antigens, pending as initially not ordered. Sputum culture, pending as not initially ordered. Blood cultures x2 have no growth to date. -Continue Zosyn 3.375 g IV every 8 hours for broad spectrum coverage. -Patient recently visited [place] close to (north of) [facility], presented without leukocytosis or positive infectious markers, had 4.8% eosinophilia on initial CBC, CT demonstrated bilateral mediastinal and hilar adenopathy, therefore, ordered Coccidioides Ab and Cryptococcus Ag, pending /send out. If not improving will treat empirically with fluconazole or itraconazole. Discussed with infectious disease from [facility] who agrees with plan. 2. Acute hypoxemic respiratory failure, present on admission. Active. -Secondary to underlying lung infection. -Currently on 2-3 L. Oxygen saturation goal 88% and will titrate off as tolerated. -Consulted respiratory therapy for evaluation and treatment. 3. Newly diagnosis COPD with acute exacerbation, present on admission. Active. -Continue IV Solu-Medrol decreased from 60 mg every 8 hours to every 12 hours. -Continue DuoNeb every 4 hours while awake and albuterol nebs every 2 hours as needed for shortness of breath. Added pulmicort 2 puffs daily. -Consulted respiratory therapy for evaluation and treatment. Ordered acapella and Mucinex 1200 mg twice daily to aide in mucus expectoration. -Also started montelukast 10 mg daily for season allergy component of airway disease. -Held beta chivo which may help breathing as below. 4. Acute hypokalemia, present on admission. Active. -Likely dilutional. -Ordered potassium chloride 40 mEQ PO x 1. Continue to monitor and replete as needed. 5. Hypertension, chronic, present on admission. Stable. -Continue losartan 50 mg daily. Held metoprolol tartrate 50 mg daily at bedtime as patient became significantly bradycardic on tele 40's last night plus may potentially worsen breathing. 6. Hyperlipidemia, chronic, present on admission. Stable. -Continue rosuvastatin 10 mg daily. Disposition: Likely to discharge home in several days depending on improvement in pneumonia with treatment. Quality VTE Deep Vein Thrombosis/Pulmonary Embolism Present on Admission: No
[2018-08-14] MEDS: POTASSIUM CHLORIDE 10 MEQ TAB 40 MEQ PO (21:14)
[2018-08-15] VITALS (12 sets, daily range): BP systolic 140–157; BP diastolic 77–83; PULSE 49–68; RESP 14–20; TEMP 36.1–36.6; O2SAT 90–98
--- NOTE | 2018-08-15 00:01 | PC.NURSE ---
[employer] Intern Note: 2345: Awake, asking for sleeping pill. Vital signs stable. IV in place in lt AC. Pt remains on O2 2L/humidified NC. Medicated for sleep with Ambien 5mg.
[2018-08-15] MEDS: PIPERACILLIN-TAZO 3.375 GM/50 ML FROZ.PIGGY IV ×4 (06:10→23:46)
[2018-08-15 06:28] LABS: Hematocrit 31.7 % (36-46); Hemoglobin 11.1 g/dL (12.0-16.0); Mean Corpuscular HGB Conc 35.1 % (30-36); Mean Corpuscular Hemoglobin 32.5 PG (26-34); Mean Corpuscular Volume 92.6 fL (80-100); Platelet Count 364 X10^3/uL (150-400); Red Blood Cell Count 3.43 X10^6/uL (4.0-5.2); Red Cell Distribution Width 13.7 % (11.6-14.8); White Blood Cell Count 9.2 X10^3/uL (4.5-11.0)
[2018-08-15 06:34] LABS: Add Manual Diff / Slide Review YES; Alanine Aminotransferase 93 IU/L (9-52); Albumin 3.3 g/dL (3.5-5.0); Albumin Globulin Ratio 1.1 (1.0-2.8); Alkaline Phosphatase 63 U/L (38-126); Aspartate Aminotransferase 58 IU/L (14-36); BUN Creatinine Ratio 18.6 (6-22); Bilirubin Total 0.3 mg/dL (0.2-1.3); Blood Urea Nitrogen 13 mg/dL (7-17); Calcium 9.4 mg/dL (8.4-10.2); Carbon Dioxide 22 mmol/L (22-32); Chloride 107 mmol/L (98-107); Estimated Glomerular Filt Rate > 60.0 mL/min (>60); Globulin 2.9 g/dL (1.7-4.1); Glucose 170 mg/dL (80-110); HEMOLYSIS < 15 (0-50); Magnesium 2.2 mg/dL (1.6-2.3); Potassium 4.8 mmol/L (3.4-5.1); Sodium 138 mmol/L (137-145); Total Protein 6.2 g/dL (6.3-8.2)
[2018-08-15 07:21] LABS: Procalcitonin < 0.05 ng/mL (<0.5)
[2018-08-15 07:27] LABS: Neutrophils Absolute Manual 7084 /uL (3000-5900); Total Cells Counted 100
[2018-08-15 07:28] LABS: Toxic Vacuolation Present
[2018-08-15] MEDS: ALBUTEROL/IPRATROPIUM 3 ML AMPUL INH ×4 (08:59→20:34)
[2018-08-15] MEDS: BUDESONIDE 60 PUFF/DEVICE INHALER INH (09:10)
[2018-08-15] MEDS: ENOXAPARIN 40 MG/0.4 ML SYRINGE SUBCUT (10:11)
[2018-08-15] MEDS: guaiFENesin ER 600 MG TAB 1200 MG PO ×2 (10:11→20:26)
[2018-08-15] MEDS: ROSUVASTATIN 10 MG TABLET PO (10:12)
[2018-08-15] MEDS: LOSARTAN 50 MG TABLET PO (10:12)
[2018-08-15] MEDS: MONTELUKAST 10 MG TABLET PO (10:14)
--- NOTE | 2018-08-15 11:10 | PC.NURSE ---
AM Shift pt AO and receptive to care. Lung sounds clear bilaterally and throughout, but pt states that this is the first time since her admission. Denying pain, reporting mild SOB, on O2, 2L NC and 02 sat is 95-97%. Ambulating in room IND and in hallways with and O2 tank. Sputum sample and UA sample collected and sent. Sputum is pending culture (few WBC's seen on gram stain). Tolerating a regular diet, but reports decreased appetite.
[2018-08-15] MEDS: SODIUM CHLORIDE 0.9% FLUSH 10 ML IV ×3 (12:21→20:26)
[2018-08-15] MEDS: methylPREDNISolone 125 MG/2 ML VIAL 60 MG IV (13:07)
--- NOTE | 2018-08-15 16:36 | PM.PN.1 ---
Subjective Date Patient Seen: 08/15/18 Interval history: Alix Hernandez is a 63-year-old female with a past medical history significant for hypertension, hyperlipidemia, insomnia and former smoker admitted with bilateral pneumonia and failed outpatient therapy with full course of Z-Enrique. She had been sick for about a month with fevers, chills, and pleuritic chest pain. The patient is resting in bedside chair comfortably and in no acute distress. She endorses improvement in her breathing and no longer feels short of breath. She reports she continues to have less frequent cough with decreased sputum production. She continues to breathe shallow as she feels this is less likely to stimulate her coughing but denies pleuritic chest pain. Encouraged her not to shallow breath. She is now off oxygen. She was started on montelukast and a steroid inhaler yesterday to help decrease inflammation of the airways. Revisited her recent trip to [place] from 07/13-07/19, in which she [place] the [place] and only stayed 1 day and night in [place], [place]. Coccidioides Ab and cryptococcus Ag have been sent but now believe these are less likely as the patient was not in [place] for an extended period of time and she continues to improve with solely antibiotics. Sputum culture was also collected. She denies headache, sore throat, chest pain, shortness of breath, abdominal pain, nausea, vomiting, fever, chills, dysuria, diarrhea or constipation. She is voiding and eliminating without difficulty. She is up ambulating without assistance. Exam Vital Signs (past 8 hours): - 08/15/18 08:59 08/15/18 09:13 08/15/18 10:30 Temperature Pulse Rate 55 L 55 L Respiratory Rate 14 14 Blood Pressure Pulse Oximetry 95 95 97 08/15/18 13:25 08/15/18 15:35 Temperature 97.9 F Pulse Rate 51 L 50 L Respiratory Rate 17 18 Blood Pressure 146/83 H Pulse Oximetry 94 90 L Oxygen Delivery Method Room Air Oxygen Flow Rate 2 Narrative Exam Narrative: General: Older female lying in bed and in no acute distress, well-developed, well-nourished, appropriately interactive. HEENT: Normocephalic, atraumatic. External ears without defect. Pupils equal, round, and reactive to light. Anicteric sclerae, moist conjunctivae, and no lid lag. Neck: Supple with full range of motion. No lymphadenopathy or thyromegaly. Cardiovascular: Regular rate and rhythm without murmurs, rubs, or gallops appreciated. Pulmonary: Lungs loosening up with significant improvement in aeration, clear throughout with fine bibasilar crackles. No wheezes or rhonchi. Normal respiratory effort with no use of accessory muscles. Abdomen: Soft, bowel sounds present, nontender, nondistended. No hepatosplenomegaly or masses appreciated. Extremities: No clubbing, cyanosis, or edema. Skin: Normal temperature, turgor, and texture; no rash, ulcers, or subcutaneous nodules appreciated. Neurological: Cranial nerves grossly intact. Psychiatric: Normal mood and affect. Alert and oriented to person, place, and time. Objective Labs Result Diagrams: 08/15/18 06:03 08/15/18 06:03 Labs: Laboratory Results - last 24 hr 08/15/18 08/15/18 08/15/18 06:03 06:03 06:03 WBC 9.2 RBC 3.43 L Hgb 11.1 L Hct 31.7 L MCV 92.6 MCH 32.5 MCHC 35.1 RDW 13.7 Plt Count 364 Neut % (Auto) Not Reportable Lymph % (Auto) Not Reportable Heard % (Auto) Not Reportable Eos % (Auto) Not Reportable Baso % (Auto) Not Reportable Lymph # (Auto) Not Reportable Heard # (Auto) Not Reportable Baso # (Auto) Not Reportable Total Counted 100 Seg Neutrophils % 72.0 H Band Neutrophils % 5.0 Lymphocytes % (Manual) 8.0 L Atypical Lymphs % 3.0 H Monocytes % (Manual) 11.0 Metamyelocytes % 1.0 H Neutrophils # (Manual) 7084 H Toxic Vacuolation Present H RBC Morphology See below Sodium Potassium Chloride Carbon Dioxide BUN Creatinine Estimated GFR BUN/Creatinine Ratio Glucose Calcium Magnesium Total Bilirubin AST ALT Alkaline Phosphatase Total Protein Albumin Globulin Albumin/Globulin Ratio Procalcitonin < 0.05 Specimen Source Cancelled Cryptococcal Ag (Latex) Cancelled 08/15/18 06:03 WBC RBC Hgb Hct MCV MCH MCHC RDW Plt Count Neut % (Auto) Lymph % (Auto) Heard % (Auto) Eos % (Auto) Baso % (Auto) Lymph # (Auto) Heard # (Auto) Baso # (Auto) Total Counted Seg Neutrophils % Band Neutrophils % Lymphocytes % (Manual) Atypical Lymphs % Monocytes % (Manual) Metamyelocytes % Neutrophils # (Manual) Toxic Vacuolation RBC Morphology Sodium 138 Potassium 4.8 D Chloride 107 Carbon Dioxide 22 BUN 13 Creatinine 0.70 Estimated GFR > 60.0 BUN/Creatinine Ratio 18.6 Glucose 170 H Calcium 9.4 Magnesium 2.2 Total Bilirubin 0.3 AST 58 H ALT 93 H Alkaline Phosphatase 63 Total Protein 6.2 L Albumin 3.3 L Globulin 2.9 Albumin/Globulin Ratio 1.1 Procalcitonin Specimen Source Cryptococcal Ag (Latex) Assessment & Plan Assessment & Plan narrative: Alix Hernandez is a 63-year-old female with a past medical history significant for hypertension, hyperlipidemia, insomnia and former smoker admitted with bilateral pneumonia and failed outpatient therapy with full course of Z-Enrique. She had been sick for about a month with fevers, chills, and pleuritic chest pain. 1. Acute bibasilar pneumonia, present on admission. Active. -Subacute presentation of 1 month illness and failed Z-Enrique therapy. -CTA showing bilateral pneumonia, mediastinal and hilar adenopathy, presumably reactive, confluency right lower lobe density presumably representing focal pneumonitis but follow-up CT with contrast recommended in 3 months to exclude underlying malignancy. -Ordered complete pneumonia workup including: Respiratory viral PCR negative. Strep pneumoniae and legionella urine antigens, pending as initially not ordered. Sputum culture, pending as not initially ordered. Blood cultures x2 have no growth to date. -Continue Zosyn 3.375 g IV every 8 hours and will plan to convert to PO antibiotics tomorrow if continuing to improve. -Patient recently visited [facility]. She traveled from [place]/13-07/19 [facility] staying in [place], [place] one night. She presented without leukocytosis or positive infectious markers, had 4.8% eosinophilia on initial CBC, CT demonstrated bilateral mediastinal and hilar adenopathy, therefore, ordered Coccidioides Ab and Cryptococcus Ag, pending /send out. If not improving will treat empirically with fluconazole or itraconazole. However, patient is improving solely with antibiotics and did not have an extended stay in [place], therefore, less likely fungal. Discussed with infectious disease from [facility] who agrees with plan. 2. Acute hypoxemic respiratory failure, present on admission. Resolved. -Secondary to underlying lung infection. -Now off oxygen. May use supplemental oxygen as needed with oxygen saturation goal 88%. -Consulted respiratory therapy for evaluation and treatment. 3. Newly diagnosis COPD with acute exacerbation, present on admission. Active. -Continue to titrate off of glucocorticoids. Stopped IV methylprednisolone today and will start prednisone 40 mg daily to finish burst tomorrow. -Continue DuoNeb every 4 hours while awake and albuterol nebs every 2 hours as needed for shortness of breath. Added pulmicort 2 puffs daily. -Consulted respiratory therapy for evaluation and treatment. Ordered acapella and Mucinex 1200 mg twice daily to aide in mucus expectoration. -Started and continue montelukast 10 mg daily for season allergy component of airway disease. -Held beta chivo which may help breathing as below. 4. Acute hypokalemia, present on admission. Resolved. -Likely dilutional. -Received potassium chloride 40 mEQ PO x 1. Continue to monitor and replete as needed. 5. Hypertension, chronic, present on admission. Stable. -Continue losartan 50 mg daily. Held metoprolol tartrate 50 mg daily at bedtime as patient became significantly bradycardic on tele 40's last night plus may potentially worsen breathing. 6. Hyperlipidemia, chronic, present on admission. Stable. -Continue rosuvastatin 10 mg daily. Disposition: Likely to discharge home in 1-2 days if she continues to improve with empiric treatment of bacterial pneumonia. Quality VTE Deep Vein Thrombosis/Pulmonary Embolism Present on Admission: No
--- NOTE | 2018-08-15 16:45 | P.PN_ITS ---
Subjective Date Patient Seen: 08/15/18 Interval history: Alix Hernandez is a 63-year-old female with a past medical history significant for hypertension, hyperlipidemia, insomnia and former smoker admitted with bi lateral pneumonia and failed outpatient therapy with full course of Z-Enrique. She had been sick for about a month with fevers, chills, and pleuritic chest pain. The patient is resting in bedside chair comfortably and in no acute distress. She endorses improvement in her breathing and no longer feels short of breath. She reports she continues to have less frequent cough with decreased sputum prod uction. She continues to breathe shallow as she feels this is less likely to stimulate her coughing but denies pleuritic chest pain. Encouraged her not to shallow breath. She is now off oxygen. She was started on montelukast and a steroid inhaler yesterday to help decrease inflammation of the airways. Revisited her recent trip to [place] from 07/13-07/19, in which she [place] they drove [place] the coast and only stayed 1 day and night in [place], [place]. Coccidioides Ab and cryptococcus Ag have been sent but now believe these are less likely as the patient was not in [place] for an extended period of time and she continues to improve with solely antibiotics. Sputum culture was also collected. She denies headache, sore throat, chest pain, shortness of breath, abdominal pain, nausea, vomiting, fever, chills, dysuria, diarrhea or constipation. She is voiding and eliminating without difficulty. She is up ambulating without assistance. Exam Vital Signs (past 8 hours): - 08/15/18 08:59 08/15/18 09:13 08/15/18 10:30 Temperature Pulse Rate 55 L 55 L Respiratory Rate 14 14 Blood Pressure Pulse Oximetry 95 95 97 08/15/18 13:25 08/15/18 15:35 Temperature 97.9 F Pulse Rate 51 L 50 L Respiratory Rate 17 18 Blood Pressure 146/83 H Pulse Oximetry 94 90 L Oxygen Delivery Method Room Air Oxygen Flow Rate 2 Narrative Exam Narrative: General: Older female lying in bed and in no acute distress, well-developed, well-nourished, appropriately interactive. HEENT: Normocephalic, atraumatic. External ears without defect. Pupils equal, round, and reactive to light. Anicteric sclerae, moist conjunctivae, and no lid lag. Neck: Supple with full range of motion. No lymphadenopathy or thyromegaly. Cardiovascular: Regular rate and rhythm without murmurs, rubs, or gallops appreciated. Pulmonary: Lungs loosening up with significant improvement in aeration, clear throughout with fine bibasilar crackles. No wheezes or rhonchi. Normal respiratory effort with no use of accessory muscles. Abdomen: Soft, bowel sounds present, nontender, nondistended. No hep atosplenomegaly or masses appreciated. Extremities: No clubbing, cyanosis, or edema. Skin: Normal temperature, turgor, and texture; no rash, ulcers, or subcutaneous nodules appreciated. Neurological: Cranial nerves grossly intact. Psychiatric: Normal mood and affect. Alert and oriented to person, place, and time. Objective Labs Result Diagrams: 08/15/18 06:03 08/15/18 06:03 Labs: Laboratory Results - last 24 hr 08/15/18 08/15/18 08/15/18 06:03 06:03 06:03 WBC 9.2 RBC 3.43 L Hgb 11.1 L Hct 31.7 L MCV 92.6 MCH 32.5 MCHC 35.1 RDW 13.7 Plt Count 364 Neut % (Auto) Not Reportable Lymph % (Auto) Not Reportable [place] % (Auto) Not Reportable Eos % (Auto) Not Reportable Baso % (Auto) Not Reportable Lymph # (Auto) Not Reportable [place] # (Auto) Not Reportable Baso # (Auto) Not Reportable Total Counted 100 Seg Neutrophils % 72.0 H Band Neutrophils % 5.0 Lymphocytes % (Manual) 8.0 L Atypical Lymphs % 3.0 H Monocytes % (Manual) 11.0 Metamyelocytes % 1.0 H Neutrophils # (Manual) 7084 H Toxic Vacuolation Present H RBC Morphology See below Sodium Potassium Chloride Carbon Dioxide BUN Creatinine Estimated GFR BUN/Creatinine Ratio Glucose Calcium Magnesium Total Bilirubin AST ALT Alkaline Phosphatase Total Protein Albumin Globulin Albumin/Globulin Ratio Procalcitonin < 0.05 Specimen Source Cancelled Cryptococcal Ag (Latex) Cancelled 08/15/18 06:03 WBC RBC Hgb Hct MCV MCH MCHC RDW Plt Count Neut % (Auto) Lymph % (Auto) [place] % (Auto) Eos % (Auto) Baso % (Auto) Lymph # (Auto) [place] # (Auto) Baso # (Auto) Total Counted Seg Neutrophils % Band Neutrophils % Lymphocytes % (Manual) Atypical Lymphs % Monocytes % (Manual) Metamyelocytes % Neutrophils # (Manual) Toxic Vacuolation RBC Morphology Sodium 138 Potassium 4.8 D Chloride 107 Carbon Dioxide 22 BUN 13 Creatinine 0.70 Estimated GFR > 60.0 BUN/Creatinine Ratio 18.6 Glucose 170 H Calcium 9.4 Magnesium 2.2 Total Bilirubin 0.3 AST 58 H ALT 93 H Alkaline Phosphatase 63 Total Protein 6.2 L Albumin 3.3 L Globulin 2.9 Albumin/Globulin Ratio 1.1 Procalcitonin Specimen Source Cryptococcal Ag (Latex) Assessment & Plan Assessment & Plan narrative: Alix Hernandez is a 63-year-old female with a past medical history significant for hypertension, hyperlipidemia, insomnia and former smoker admitted with bilateral pneumonia and failed outpatient therapy with full course of Z-Enrique. She had been sick for about a month with fevers, chills, and pleuritic chest pain. 1. Acute bibasilar pneumonia, present on admission. Active. -Subacute presentation of 1 month illness and failed Z-Enrique therapy. -CTA showing bilateral pneumonia, mediastinal and hilar adenopathy, presumably reactive, confluency right lower lobe density presumably representing focal pneumonitis but follow-up CT with contrast recommended in 3 months to exclude underlying malignancy. -Ordered complete pneumonia workup including: Respiratory viral PCR negative. Strep pneumoniae and legionella urine antigens, pending as initially not ordered. Sputum culture, pending as not initially ordered. Blood cultures x2 have no growth to date. -Continue Zosyn 3.375 g IV every 8 hours and will plan to convert to PO antibiotics tomorrow if continuing to improve. -Patient recently visited [facility]. She traveled from 07/13-07/19 down the [facility] staying in [place], [place] one night. She presented without leukocytosis or positive infectious markers, had 4.8% eosinophilia on i nitial CBC, CT demonstrated bilateral mediastinal and hilar adenopathy, therefore, ordered Coccidioides Ab and Cryptococcus Ag, pending /send out. If not improving will treat empirically with fluconazole or itraconazole. However, patient is improving solely with antibiotics and did not have an extended stay in [place], therefore, less likely fungal. Discussed with infectious disease from [facility] who agrees with plan. 2. Acute hypoxemic respiratory failure, present on admission. Resolved. -Secondary to underlying lung infection. -Now off oxygen. May use supplemental oxygen as needed with oxygen saturation goal 88%. -Consulted respiratory therapy for evaluation and treatment. 3. Newly diagnosis COPD with acute exacerbation, present on admission. Active. -Continue to titrate off of glucocorticoids. Stopped IV methylprednisolone today and will start prednisone 40 mg daily to finish burst tomorrow. -Continue DuoNeb every 4 hours while awake and albuterol nebs every 2 hours as needed for shortness of breath. Added pulmicort 2 puffs daily. -Consulted respiratory therapy for evaluation and treatment. Ordered acapella and Mucinex 1200 mg twice daily to aide in mucus expectoration. -Started and continue montelukast 10 mg daily for season allergy component of airway disease. -Held beta chivo which may help breathing as below. 4. Acute hypokalemia, present on admission. Resolved. -Likely dilutional. -Received potassium chloride 40 mEQ PO x 1. Continue to monitor and replete as n eeded. 5. Hypertension, chronic, present on admission. Stable. -Continue losartan 50 mg daily. Held metoprolol tartrate 50 mg daily at bedtime as patient became significantly bradycardic on tele 40's last night plus may potentially worsen breathing. 6. Hyperlipidemia, chronic, present on admission. Stable. -Continue rosuvastatin 10 mg daily. Disposition: Likely to discharge home in 1-2 days if she continues to improve with empiric treatment of bacterial pneumonia. Quality VTE Deep Vein Thrombosis/Pulmonary Embolism Present on Admission: No
--- NOTE | 2018-08-15 23:26 | PC.NURSE ---
ángel shift- pt doing very well. walked 9 laps in hallway with . on ROOM air. saturations 97%. new IV started. pt cooperative with nursing staff. calls when needing assistance. will continue ot monitor pt for safety.
[2018-08-15] MEDS: ZOLPIDEM 5 MG TABLET PO (23:46)
--- NOTE | 2018-08-16 00:12 | PC.NURSE ---
Fashion Intern Note: 2345: Awake, watching TV. Asking for sleeping pill. Vital signs stable. IV in place in rt wrist. Pt is on room air and tolerating well with O2 sat of 97% at this time. Medicated for sleep with Ambien 5mg po.
[2018-08-16] MEDS: PIPERACILLIN-TAZO 3.375 GM/50 ML FROZ.PIGGY IV (06:35)
[2018-08-16 07:37] LABS: Add Manual Diff / Slide Review YES; Hematocrit 31.4 % (36-46); Hemoglobin 10.9 g/dL (12.0-16.0); Mean Corpuscular HGB Conc 34.7 % (30-36); Platelet Count 366 X10^3/uL (150-400); Red Blood Cell Count 3.42 X10^6/uL (4.0-5.2); Red Cell Distribution Width 13.4 % (11.6-14.8); White Blood Cell Count 8.5 X10^3/uL (4.5-11.0)
[2018-08-16 07:40] VITALS: O2SAT 94
[2018-08-16 07:41] VITALS: BP 184/95; PULSE 48; RESP 16; TEMP 37.1; O2SAT 94
[2018-08-16 07:49] LABS: Alanine Aminotransferase 79 IU/L (9-52); Albumin 3.2 g/dL (3.5-5.0); Albumin Globulin Ratio 1.1 (1.0-2.8); Alkaline Phosphatase 58 U/L (38-126); Aspartate Aminotransferase 35 IU/L (14-36); BUN Creatinine Ratio 17.1 (6-22); Bilirubin Total 0.3 mg/dL (0.2-1.3); Blood Urea Nitrogen 12 mg/dL (7-17); Calcium 9.1 mg/dL (8.4-10.2); Carbon Dioxide 24 mmol/L (22-32); Chloride 106 mmol/L (98-107); Estimated Glomerular Filt Rate > 60.0 mL/min (>60); Globulin 2.8 g/dL (1.7-4.1); Glucose 103 mg/dL (80-110); HEMOLYSIS < 15 (0-50); Potassium 3.8 mmol/L (3.4-5.1); Sodium 138 mmol/L (137-145)
[2018-08-16 08:15] LABS: Neutrophils Absolute Manual 5950 /uL (3000-5900); Total Cells Counted 100
[2018-08-16 08:18] LABS: RBC Morphology Normal Morphology
[2018-08-16] MEDS: MONTELUKAST 10 MG TABLET PO (08:53)
[2018-08-16] MEDS: ALBUTEROL/IPRATROPIUM 3 ML AMPUL INH (08:53)
[2018-08-16 08:58] VITALS: PULSE 56; RESP 18; O2SAT 96
[2018-08-16] MEDS: BUDESONIDE 60 PUFF/DEVICE INHALER INH (09:01)
[2018-08-16] MEDS: guaiFENesin ER 600 MG TAB 1200 MG PO (09:20)
[2018-08-16] MEDS: ENOXAPARIN 40 MG/0.4 ML SYRINGE SUBCUT (09:20)
[2018-08-16] MEDS: ROSUVASTATIN 10 MG TABLET PO (09:20)
[2018-08-16] MEDS: LOSARTAN 50 MG TABLET PO (09:20)
[2018-08-16] MEDS: predniSONE 20 MG TABLET 40 MG PO (09:20)
[2018-08-16] MEDS: AMOXICILLIN/CLAV 875/125 MG 1 TAB PO (09:26)
--- NOTE | 2018-08-16 10:14 | P.DS_ITS ---
History of Present Illness Date Patient Seen: 08/12/18 Chief complaint: pneumonia/difficulty breathing Narrative: Written by Dr. Bains: This is a 63-year-old female who presents with bibasilar pneumonia. She has been coughing for about 1 month with fevers up to 102.5, chills, sweats, pleuritic chest pain. A week ago she was started on azithromycin which she has taken without benefit so far. On presentation to the emergency department she was 84% on room air, rising to 93% on 4 L nasal cannula but dropping quickly when she sits up. Chest x-ray shows bibasilar pneumonia. The chest CT shows no PE but a follow-up CT in 3 months is recommended to look at these areas of pneumonia. She is a former smoker and is wheezing heavily, consistent with previously undiagnosed COPD. The fevers, cough have all improved but the extreme fatigue and dyspnea have become ?horrible? in the last week. Discharge Providers Date of admission: 08/12/18 13:00 Discharge Date: 08/16/18 Consults: 08/12/18 14:29 Consult to Dietitian, Adult Routine Comment: Reason For Exam: POOR APPETITE W/ WT LOSS X 1MO. APPROX 10 LBS 08/12/18 17:54 Consult to Respiratory Therapy Evaluate & Treat Comment: Physician Instructions: Evaluate and treat Discharge provider: Margy Dong DO Summary Discharge Diagnosis: 1. Acute bibasilar pneumonia, present on admission. Resolving. 2. Acute hypoxemic respiratory failure, present on admission. Resolved. 3. Newly diagnosis COPD with acute exacerbation, present on admission. Acute exacerbation resolved. 4. Acute hypokalemia, present on admission. Resolved. 5. Hypertension, chronic, present on admission. Stable. 6. Hyperlipidemia, chronic, present on admission. Stable. Hospital Course: Alix Hernandez is a 63-year-old female with a past medical history significant for hypertension, hyperlipidemia, insomnia and former smoker admitted with bilateral pneumonia and failed outpatient therapy with full course of Z-Enrique. She had been sick for about a month with fevers, chills, and pleuritic chest pa in. 1. Acute bibasilar pneumonia, present on admission. Resolving. -Subacute presentation of 1 month illness and failed Z-Enrique therapy. -CTA showing bilateral pneumonia, mediastinal and hilar adenopathy, presumably reactive, confluency right lower lobe density presumably representing focal pneumonitis but follow-up CT with contrast recommended in 3 months to exclude underlying malignancy. -Ordered complete pneumonia workup including: Respiratory viral PCR negative. Strep pneumoniae and legionella urine antigens, pending. Sputum culture preliminarily with mixed residential sara. Blood cultures x2 have no growth to date. -Continued Zosyn 3.375 g IV every 8 hours and discharged on Augmentin twice a day for the next 4 days to complete 7 day course of antibiotic therapy. -Patient recently visited [facility]. She traveled from 07/13-07/19 down the [facility] staying in [place], [place] one night. She presented without leukocytosis or positive infectious markers, had 4.8% eosinophilia on initial CBC, CT demonstrated bilateral mediastinal and hilar adenopathy, therefore, ordered Coccidioides Ab and Cryptococcus Ag, pending /send out. If not improving will treat empirically with fluconazole or itraconazole. However, patient improved solely with antibiotics and did not have an extended stay in [place], therefore, less likely fungal. Discussed with infectious disease from [facility] who agrees with plan. 2. Acute hypoxemic respiratory failure, present on admission. Resolved. -Secondary to underlying lung infection. -Now off oxygen and eceived supplemental oxygen as needed with oxygen saturation goal 88%. -Continued respiratory therapy for evaluation and treatment. 3. Newly diagnosis COPD with acute exacerbation, present on admission. Acute exacerbation resolved. -Continue to titrate off of glucocorticoids. Stopped IV methylprednisolone today and will start prednisone 40 mg daily to finish burst tomorrow. -Continue DuoNeb every 4 hours while awake, albuterol nebs every 2 hours as needed for shortness of breath and pulmicort 2 puffs daily. Discharge with in haler equivalent of all medications. -Consulted respiratory therapy for evaluation and treatment. Continued acapella and Mucinex 1200 mg twice daily to aide in mucus expectoration. -Started and continued montelukast 10 mg daily for season allergy component of airway disease. Discharged with prescription. -Held beta chivo which may help breathing as below. 4. Acute hypokalemia, present on admission. Resolved. -Likely dilutional. -Received potassium chloride 40 mEQ PO x 1. Continued to monitor and replete as needed. 5. Hypertension, chronic, present on admission. Stable. -Continued losartan 50 mg daily. Held metoprolol tartrate 50 mg daily at bedtime as patient became significantly bradycardic on tele 40's and may potentially worsen breathing with bronchospastic component. 6. Hyperlipidemia, chronic, present on admission. Stable. -Continued rosuvastatin 10 mg daily. Status at Discharge Functional status at discharge: independent ambulation Overall status at discharge: patient is progressing back to baseline Exam Vital Signs (past 8 hours): - 08/16/18 07:40 08/16/18 07:41 08/16/18 08:58 Temperature 98.7 F Pulse Rate 48 L 56 L Respiratory Rate 16 18 Blood Pressure 184/95 H Pulse Oximetry 94 94 96 Oxygen Delivery Method Room Air Oxygen Flow Rate 0 Narrative Exam Narrative: General: Older female lying in bed and in no acute distress, well-developed, well-nourished, appropriately interactive. HEENT: Normocephalic, atraumatic. External ears without defect. Pupils equal, round, and reactive to light. Anicteric sclerae, moist conjunctivae, and no lid lag. Neck: Supple with full range of motion. No lymphadenopathy or thyromegaly. Cardiovascular: Regular rate and rhythm without murmurs, rubs, or gallops appreciated. Pulmonary: Aeration much improved and clear throughout with fine crackle at left base. No wheezes or rhonchi. Normal respiratory effort with no use of accessory muscles. Abdomen: Soft, bowel sounds present, nontender, nondistended. No hepatosplenomegaly or masses appreciated. Extremities: No clubbing, cyanosis, or edema. Skin: Normal temperature, turgor, and texture; no rash, ulcers, or subcutaneous nodules appreciated. Neurological: Cranial nerves grossly intact. Psychiatric: Normal mood and affect. Alert and oriented to person, place, and time. Objective Labs Result Diagrams: 08/16/18 06:35 08/16/18 06:35 Labs: Laboratory Results - last 24 hr 08/16/18 08/16/18 06:35 06:35 WBC 8.5 RBC 3.42 L Hgb 10.9 L Hct 31.4 L MCV 92.0 MCH 32.0 MCHC 34.7 RDW 13.4 Plt Count 366 Neut % (Auto) Not Reportable Lymph % (Auto) Not Reportable King % (Auto) Not Reportable Eos % (Auto) Not Reportable Baso % (Auto) Not Reportable Lymph # (Auto) Not Reportable King # (Auto) Not Reportable Baso # (Auto) Not Reportable Total Counted 100 Seg Neutrophils % 68.0 Band Neutrophils % 2.0 L Lymphocytes % (Manual) 20.0 L Monocytes % (Manual) 9.0 Eosinophils % (Manual) 1.0 L Neutrophils # (Manual) 5950 H RBC Morphology Normal morphology Sodium 138 Potassium 3.8 Chloride 106 Carbon Dioxide 24 BUN 12 Creatinine 0.70 Estimated GFR > 60.0 BUN/Creatinine Ratio 17.1 Glucose 103 Calcium 9.1 Total Bilirubin 0.3 AST 35 ALT 79 H Alkaline Phosphatase 58 Total Protein 6.0 L Albumin 3.2 L Globulin 2.8 Albumin/Globulin Ratio 1.1 Discharge Plan Discharge Plan Patient Disposition: Home Discharge comment: You are being discharged home. Please follow-up with your PCP regarding your hospitalization for bilateral pneumonia. Your PCP may request to have records faxed so that she is able to see everything that went on during your hospitalization. You have several tests pending including: Fungal and bacterial studies which your PCP should follow-up. Recommend that you have a repeat CT chest with contrast in 3 months to exclude underlying malignancy. Once your pneumonia has completely resolved and you have had repeat imaging of your chest, would then recommend you have pulmonary function tests to determine if you indeed have COPD and if so the degree of severity. For your breathing you have been prescribed: A rescue inhaler called Albuterol to be used as needed for shortness of breath and wheezing, a muscle-relaxant of the airways called Spiriva to use once daily to prevent COPD exacerbation, a steroid inhaler called Flovent to use twice daily (rinse mouth after each use to prevent thrush) to help decrease the inflammation in your airways (this may be stopped in 1-2 weeks as your pneumonia resolves) and montelukast 10 mg once daily to help with allergy component of the airways. You will be on an antibiotic called Augmentin for 4 additional days to complete a total 7 day course and prednisone for 2 more doses to complete a 5 day burst. Please follow-up with your willow worker regarding your pneumonia, COPD, and the above medications. Your metoprolol has been stopped as your heart rate was significantly low (40's). Your losartan was increased to twice a day, once in the morning and once at night, and c hlorthalidone 25 mg daily was added to help control your blood pressure. You likely have fatty liver disease and it is recommended that you implement lifestyle modification including: diet and exercise. Discharge Med Rec/Prescriptions Prescriptions: New montelukast 10 mg Tablet 10 mg PO DAILY Qty: 30 RF: 0 amoxicillin-pot clavulanate 875-125 mg tablet 1 tab PO BID Qty: 8 RF: 0 prednisone 20 mg Tablet 40 mg PO DAILY Qty: 2 RF: 0 chlorthalidone 25 mg Tablet 25 mg PO DAILY Qty: 30 RF: 0 albuterol sulfate 90 mcg/actuation HFA aerosol inhaler 1 puff INHALATION Q6H PRN (Reason: shortness of breath or wheezing) Qty: 18 RF: 0 Spiriva with HandiHaler 18 mcg capsule, w/inhalation device 1 cap INHALATION DAILY Qty: 30 RF: 0 Flovent Diskus 50 mcg/actuation blister with device 1 inhalation INHALATION BID Qty: 60 RF: 0 Continued rosuvastatin 10 mg tablet 10 mg PO DAILY RF: 0 zolpidem 5 MG tablet 5 mg PO BEDTIME PRN (Reason: Sleep) Qty: 0 RF: 0 Changed losartan 50 MG tablet 50 mg PO BID Qty: 60 RF: 0 Discontinued metoprolol tartrate 50 mg tablet 50 mg PO QPM RF: 0 Follow up/Referrals: Christina Marcano MD [Non-Staff] - 08/22/18 10:45 am Provider Discharge Instructions Diet: Low-fat, Low-sodium and Low-cholesterol Activity: Activity as tolerated Visit Report/Discharge Packet Instructions: The Mediterranean Diet and Good Health, DI for Chronic Obstructive Pulmonary Disease, DI for Pneumonia -- Adult, How to Prevent Falls, Chlorthalidone, Metoprolol Discharge Data Attending Provider: Ruthie Bains Admit Date/Time: 08/12/18 13:00 Discharges patient from system. Discharge Date/Time: 08/16/18 12:50 Quality VTE Deep Vein Thrombosis/Pulmonary Embolism Present on Admission: No
[2018-08-16] MEDS: CHLORTHALIDONE 25 MG TABLET PO (12:30)
--- NOTE | 2018-08-16 12:49 | PC.NURSE ---
Day Shift- Pt indep in room, A&OX4, stated this morning wanted to go home. No new voiced concerns. Chlorthalidone given prior to discharge. Discharge Summary packet reviewed by fender finisher and observed by this RN. Pt stated having a follow up appointment with her PCP next Wednesday at 1045 AM. Reviewed but not limited to Medications, diet, S/S of infection, worsening symptoms. Pt states has all belongings. Pt's present to drive pt home. Pt left unit at 1250 via wheelchair with fender finisher in no distress.
--- NOTE | 2018-08-16 14:56 | CM.DPC ---
DCP: continued: case received and discussed in Team Rounds and then later with Dr. Dong. Dr. Dong reports pt is stable for a d/c to home and is doing well. She will see her PCP in [place] on Tuesday 08/22. She plane to establish with a PCP in the [place] area. Pt went home as per RN update at 1230.
[2018-08-17 12:48] LABS: Anti-Streptolysin O Antibody < 50 IU/mL (< 200)
== END 2018-08-16 12:50 | disposition home or self-care (01) | DRG 193 ==
LOC: ED 12:24 → AC 13:00 → ICU 14:06 → AC 08-13 16:50
PROVIDERS: Internal Medicine; Admitting Provider Family Medicine; Emergency Provider Emergency Medicine; Visit Provider Family Medicine
DX: J18.9 Pneumonia, unspecified organism (principal); J96.01 Acute respiratory failure with hypoxia; J44.1 Chronic obstructive pulmonary disease with (acute) exacerbation; I10 Essential (primary) hypertension; E78.5 Hyperlipidemia, unspecified; Z87.891 Personal history of nicotine dependence; E87.6 Hypokalemia
CPT/HCPCS: 36415; 36591; 36600; 71046; 71275; 80048; 80053; 82550; 82805; 83036; 83605; 83735; 83880; 84145; 84484; 85025; 85379; 86060; 87040; 87070; 87205; 87449; 87633; 87797; 93005; 93010; 94640; 94667; 94760; 94762; 96365; 96375; 99283; 99285; J1650; J2543; J2930; Q9967

== ENCOUNTER → 2018-11-08 10:44 | Outpatient (CLI) | payer OTHER, SELFPAY ==
[2018-08-12 14:11] VITALS: BMI 31.6
--- NOTE | 2018-11-08 | DI.MG.S_ITS ---
BILATERAL DIGITAL SCREENING MAMMOGRAM 3D/2D WITH CAD: 11/08/2018 CLINICAL: Routine screening. Comparison is made to exams dated: 10/26/2017 mammogram, 10/08/2016 mammogram - [facility], 07/30/2015 mammogram, 07/11/2014 mammogram, and 05/25/2013 mammogram - [facility]. The tissue of both breasts is heterogeneously dense. This may lower the sensitivity of mammography. Current study was also evaluated with a Computer Aided Detection (CAD) system. No significant masses, calcifications, or other findings are seen in either breast. There has been no significant interval change. IMPRESSION: NEGATIVE There is no mammographic evidence of malignancy. A 1 year screening mammogram is recommended. This exam was interpreted at Station ID: [id number]. NOTE: For mammograms, a report in lay terms will be sent to the patient. Approximately 15% of breast malignancies will not be visualized mammographically. In the management of a palpable breast mass, a negative mammogram must not discourage biopsy of a clinically suspicious lesion. Electronically Signed By: Umer tavarez/cain:11/08/2018 17:35:20 letter sent: Normal Exam ACR BI-RADS Category 1: Negative 3341F
--- NOTE | 2018-11-08 | DI.RAD.S_ITS ---
PROCEDURE: XR CHEST 2V INDICATIONS: F/U PNA TECHNIQUE: 2 views of the chest were acquired. COMPARISON: [facility], CR, XR CHEST 2V, 08/12/2018, 10:15. [facility], CR, XR CHEST 2V, 07/30/2018, 9:16. FINDINGS: Surgical changes and devices: None. Lungs and pleura: Lungs are clear. No pleural effusions or pneumothorax. Mediastinum: Mediastinal contours are normal. Heart size is normal. Bones and chest wall: No suspicious bony abnormalities. Soft tissues appear unremarkable. IMPRESSION: Normal for age, resolution of prior reported pneumonia. Dictated by: Jaspal Wright M.D. on 11/08/2018 at 11:49 Approved by: Jaspal Wright M.D. on 11/08/2018 at 11:49
== END ==
PROVIDERS: PCP Family Medicine; Visit Provider Family Medicine
DX: Z12.31 Encounter for screening mammogram for malignant neoplasm of breast (principal); Z09 Encounter for follow-up examination after completed treatment for conditions other than malignant neoplasm; Z87.01 Personal history of pneumonia (recurrent)
CPT/HCPCS: 71046; 77063; 77067

== ENCOUNTER → 2019-01-11 11:30 | Outpatient (CLI) | payer OTHER, SELFPAY ==
[2018-08-12 14:11] VITALS: BMI 31.6
--- NOTE | 2019-01-11 | DI.RAD.S_ITS ---
PROCEDURE: XR HIP W PEL IF DONE RT 2V INDICATIONS: RT HIP PAIN TECHNIQUE: AP pelvis with lateral view(s) of the right hip. COMPARISON: None. FINDINGS: Bones: No fractures or dislocations. Pelvic ring appears intact. No suspicious bony lesions. Soft tissues: The visualized bowel gas pattern is normal. No suspicious soft tissue calcifications. IMPRESSION: Asymmetric hip joint osteoarthritis is present, moderate on the left and moderately severe on the right. No acute trauma found. Dictated by: Jaspal Wright M.D. on 01/11/2019 at 12:09 Approved by: Jaspal Wright M.D. on 01/11/2019 at 12:10
== END ==
PROVIDERS: Visit Provider Family Medicine
DX: M25.551 Pain in right hip (principal); M16.0 Bilateral primary osteoarthritis of hip
CPT/HCPCS: 73502

== ENCOUNTER → 2019-12-05 11:18 | Outpatient (CLI) | payer OTHER, SELFPAY ==
[2018-08-12 14:11] VITALS: BMI 31.6
--- NOTE | 2019-12-05 11:37 | DI.MG.S_ITS ---
Patient Name: HUGH SOLIS date: 1955 Sex: F Attending Physician: Krys Indications: Date: 12/05/2019 11:34 At the request of: MERCEDES BLANDON Procedure: MM screening mammo BI BILATERAL DIGITAL SCREENING MAMMOGRAM 3D/2D WITH CAD: 12/05/2019 CLINICAL: Routine screening. Comparison is made to exams dated: 11/08/2018 mammogram, 10/26/2017 mammogram, and 10/08/2016 mammogram - [facility]. The tissue of both breasts is heterogeneously dense. This may lower the sensitivity of mammography. Current study was also evaluated with a Computer Aided Detection (CAD) system. No significant masses, calcifications, or other findings are seen in either breast. There has been no significant interval change. IMPRESSION: NEGATIVE There is no mammographic evidence of malignancy. A 1 year screening mammogram is recommended. This exam was interpreted at Station ID: [id number]. NOTE: For mammograms, a report in lay terms will be sent to the patient. Approximately 15% of breast malignancies will not be visualized mammographically. In the management of a palpable breast mass, a negative mammogram must not discourage biopsy of a clinically suspicious lesion. Electronically Signed By: Geeta laws/cain:12/05/2019 13:24:19 letter sent: Normal Exam ACR BI-RADS Category 1: Negative 3341F
== END ==
PROVIDERS: PCP Family Medicine; Referring Provider Family Medicine; Visit Provider Family Medicine
DX: Z12.31 Encounter for screening mammogram for malignant neoplasm of breast (principal)
CPT/HCPCS: 77063; 77067

== ENCOUNTER → 2020-06-24 11:57 | Outpatient (CLI) | payer MEDICARE, BC, SELFPAY ==
[2018-08-12 14:11] VITALS: BMI 31.6
--- NOTE | 2020-06-24 12:08 | DI.RAD.S_ITS ---
PROCEDURE: XR KNEE RT 3V INDICATIONS: RIGHT KNEE PAIN TECHNIQUE: 3 views of the knee were acquired. COMPARISON: None. FINDINGS: Bones: No fractures or dislocations. No suspicious bony lesions. Soft tissues: Mild joint effusion. No suspicious soft tissue calcifications. IMPRESSION: Mild effusion. No visualized acute fracture or dislocation. However, if clinical concern and/or pain persist, short interval imaging followup in 7-10 days is recommended, as occult injury cannot be definitively excluded. Dictated by: Carol Mondragon M.D. on 06/25/2020 at 13:39 Approved by: Carol Mondragon M.D. on 06/25/2020 at 13:40
--- NOTE | 2020-06-24 12:09 | DI.RAD.S_ITS ---
PROCEDURE: XR LUMBAR SPINE 2-3V INDICATIONS: BACK PAIN TECHNIQUE: 3 views of the lumbar spine were acquired. COMPARISON: None. FINDINGS: Bones: 5 [id number]-[id number] vertebrae are present. There is mildly abnormal bony alignment with grade 1 anterolisthesis of L4 on L5.. No vertebral body compression fractures. No suspicious bony lesions. Note is made of a minimal degree of degenerative disc height reduction at L1-L2. There is a moderate degree of such disc height reduction at L5-S1. There is mild facet osteoarthritis at L3-4, moderate such degeneration at L4-5, and moderately severe such degeneration at L5-S1. Ligamentous laxity allows anterolisthesis grade 1 of L4 on L5. Soft tissues: Overlying bowel gas pattern is normal. No suspicious soft tissue calcifications. IMPRESSION: [id number]-vceiqrmv degenerative disc disease overall, with the most prominent degree of degenerative disc height reduction seen at L5-S1 and also facet osteoarthritis becomes were progressively more prominent from L3 inferiorly. This allows the anterolisthesis noted above due to ligamentous laxity. No trauma. Dictated by: Jaspal Wright M.D. on 06/24/2020 at 13:27 Approved by: Jaspal Wright M.D. on 06/24/2020 at 13:30
== END ==
PROVIDERS: PCP Family Medicine; Referring Provider Family Medicine; Visit Provider Family Medicine
DX: M54.5 Low back pain (principal); R20.2 Paresthesia of skin; M25.361 Other instability, right knee; M25.561 Pain in right knee; M25.461 Effusion, right knee; M47.816 Spondylosis without myelopathy or radiculopathy, lumbar region; M51.36 Other intervertebral disc degeneration, lumbar region; M51.37 Other intervertebral disc degeneration, lumbosacral region; M43.16 Spondylolisthesis, lumbar region
CPT/HCPCS: 72100; 73562

== ENCOUNTER → 2020-07-01 11:32 | Outpatient (CLI) | payer MEDICARE, BC, SELFPAY ==
[2018-08-12 14:11] VITALS: BMI 31.6
--- NOTE | 2020-07-01 | DI.MRI.S_ITS ---
PROCEDURE: MR KNEE RT WO CON INDICATIONS: Other instability, right knee TECHNIQUE: Noncontrast sagittal PD fast spin echo and T2 fast spin echo with fat saturation, sagittal 3-D FLASH with fat saturation; coronal T1 spin echo and PD fast spin echo with fat saturation, and axial PD fast spin echo with fat saturation through the knee. COMPARISON: None. FINDINGS: Menisci: Medial meniscus intact. Macerated tear involving the posterior horn and body of the lateral meniscus. There is abnormal signal extending to the superior and inferior articular surfaces. There is mild partial extrusion. Truncation of the free margin of the posterior margin also noted. Cruciate ligaments: Mild intrasubstance signal changes involving the ACL suggestive of chronic partial rupture versus early mucoid degeneration. Posterior cruciate ligament appears intact. Medial structures: The medial collateral ligament appears intact. Semimembranosus tendon appears intact. Visualized portions of the pes anserinus tendons appear normal. No abnormal bursal fluid. Lateral structures: The lateral collateral ligament demonstrates thickening and intrasubstance signal change in keeping with low grade sprain, statistically chronic, although technically age indeterminate. Biceps femoris tendon appears intact. Popliteus tendon grossly unremarkable. Iliotibial band appears intact. Anterior structures: Quadriceps tendon intact. Medial and lateral patellofemoral ligaments intact. There is mild patellar tendinopathy. Prepatellar and superficial infrapatellar subcutaneous edema/fluid. Bones and cartilage: No focal marrow contusion or discrete low signal fracture line. Within the medial compartment, near full thickness loss of the central weight-bearing femoral cartilage. The tibial cartilage appears grossly intact. Within the lateral compartment, diffuse surface fraying of the femoral and tibial articular cartilage with mild partial thickness loss. Within the patellofemoral compartment, mild surface fraying of the central femoral trochlear cartilage. Joint space: Trace joint effusion Large Mckeon's cyst measuring approximately 8 cm in the cephalocaudal dimension. No specific evidence of intra-articular loose body. IMPRESSION: Macerated complex lateral meniscal tear involving the posterior horn and body with slight partial extrusion. Mild intrasubstance signal changes of the ACL suggesting chronic low-grade sprain versus early mucoid degeneration. Degenerative joint disease as above. Trace joint effusion Large Mckeon's cyst. Mild patellar tendinopathy. Dictated by: Mark Hernandez M.D. on 07/01/2020 at 13:29 Approved by: Mark Hernandez M.D. on 07/01/2020 at 13:42
== END ==
PROVIDERS: PCP Family Medicine; Referring Provider Family Medicine; Visit Provider Family Medicine
DX: M25.361 Other instability, right knee (principal); M25.561 Pain in right knee; S83.271A Complex tear of lateral meniscus, current injury, right knee, initial encounter; M17.11 Unilateral primary osteoarthritis, right knee; M71.21 Synovial cyst of popliteal space [Baker], right knee
CPT/HCPCS: 73721

== ENCOUNTER → 2020-07-17 12:06 | Outpatient (CLI) | payer MEDICARE, BC, SELFPAY ==
[2018-08-12 14:11] VITALS: BMI 31.6
--- NOTE | 2020-07-17 12:09 | DI.MRI.S_ITS ---
PROCEDURE: MR LUMBAR SPINE WO CON INDICATIONS: Low back pain TECHNIQUE: Noncontrast sagittal T1 spin echo and T2 fast echo, sagittal STIR, axial T1 and T2 fast spin echo through the lumbar spine. In cases with scoliosis, additional coronal T2 fast spin echo may be performed. COMPARISON: [facility], CR, XR LUMBAR SPINE 2-3V, 06/24/2020, 12:10. FINDINGS: Image quality: Excellent. Alignment and Curvature: There is trace anterolisthesis of L4 on L5. Bone Marrow: Marrow is of normal overall signal. No acute vertebral body compression fractures. Spinal Cord: Conus medullaris terminates at the L1-L2 level. Visualized cord demonstrates normal signal and size. Paraspinous Soft Tissues: No paravertebral masses. Discs: Severe desiccation is present L5-S1, mild throughout the remainder of the lumbar spine. L1-L2: No disc bulge, spinal stenosis or foraminal narrowing. L2-L3: No disc bulge, spinal stenosis or foraminal narrowing. L3-L4: Minimal disc bulge without spinal stenosis or foraminal narrowing. Mild facet and ligamentum flavum hypertrophy. Minimal epidural lipomatosis. L4-L5: Mild disc bulge with minimal canal narrowing. No foraminal narrowing. Minimal epidural lipomatosis. Prominent facet and ligamentum flavum hypertrophy are present. L5-S1: Mild disc bulge with posterior left paracentral protrusion with mild compromise of the left lateral recess. There is mild left and minimal right foraminal narrowing with facet hypertrophy. IMPRESSION: 1. Minimal spinal stenosis at L4-5 secondary to disc bulge with contributing affective facet/ligamentum flavum arthropathy. 2. Minimal to mild bilateral foraminal narrowing at L5-S1 secondary to facet arthropathy. Dictated by: Carol Mondragon M.D. on 07/17/2020 at 16:32 Approved by: Carol Mondragon M.D. on 07/17/2020 at 16:35
== END ==
PROVIDERS: PCP Family Medicine; Referring Provider Family Medicine; Visit Provider Family Medicine
DX: R20.2 Paresthesia of skin (principal); M54.5 Low back pain; M54.10 Radiculopathy, site unspecified
CPT/HCPCS: 72148

== ENCOUNTER → 2020-12-27 10:30 | Outpatient (CLI) | payer MEDICARE, OTHER, SELFPAY ==
[2018-08-12 14:11] VITALS: BMI 31.6
--- NOTE | 2020-12-27 | DI.MG.S_ITS ---
BILATERAL DIGITAL SCREENING MAMMOGRAM 3D/2D WITH CAD: 12/27/2020 CLINICAL: Routine screening. Comparison is made to exams dated: 12/05/2019 mammogram, 11/08/2018 mammogram, and 10/26/2017 mammogram - [facility]. There are scattered fibroglandular elements in both breasts. Current study was also evaluated with a Computer Aided Detection (CAD) system. There is a benign focal asymmetry in the left breast. No significant masses, calcifications, or other findings are seen in either breast. There has been no significant interval change. IMPRESSION: BENIGN There is no mammographic evidence of malignancy. A 1 year screening mammogram is recommended. This exam was interpreted at Station ID: [id number]. NOTE: For mammograms, a report in lay terms will be sent to the patient. Approximately 15% of breast malignancies will not be visualized mammographically. In the management of a palpable breast mass, a negative mammogram must not discourage biopsy of a clinically suspicious lesion. Electronically Signed By: Bonnie charlton/cain:12/27/2020 12:24:36 letter sent: Normal Exam ACR BI-RADS Category 2: Benign Finding(s) 3342F
--- NOTE | 2020-12-27 10:36 | DI.RAD.S_ITS ---
PROCEDURE: XR HIP W PEL IF DONE LT 2V INDICATIONS: PRESENCE OF ARTIFICIAL LEFT HIP JOINT TECHNIQUE: 2 view(s) of the hip acquired. COMPARISON: [facility], CR, XR HIP W PEL IF DONE RT 2V, 01/11/2019, 11:42. FINDINGS: Bones: Patient is status post left hip arthroplasty, with hardware components in expected positions. The hip joint appears congruent. The visualized bony structures appear intact. Soft tissues: Overlying postoperative changes are noted. No suspicious soft tissue densities. IMPRESSION: Expected appearance and alignment of left hip arthroplasty. Dictated by: Rodney Epps RR Interpreted: Aly Freeman MD on 12/27/2020 at 11:12 Transcribed by: JOY on 12/27/2020 at 11:13 Approved by: Chris Freeman M.D. on 12/29/2020 at 7:42
== END ==
PROVIDERS: PCP Family Medicine; Referring Provider Orthopaedic Surgery; Visit Provider Family Medicine
DX: Z12.31 Encounter for screening mammogram for malignant neoplasm of breast (principal); Z78.0 Asymptomatic menopausal state; Z47.1 Aftercare following joint replacement surgery; Z96.642 Presence of left artificial hip joint
CPT/HCPCS: 73502; 77063; 77067; 77080

== ENCOUNTER → 2021-02-05 13:26 | Outpatient (CLI) | payer MEDICARE, OTHER, SELFPAY ==
[2018-08-12 14:11] VITALS: BMI 31.6
--- NOTE | 2021-02-05 | DI.RAD.S_ITS ---
PROCEDURE: XR HIP W PEL IF DONE LT 2V INDICATIONS: Pain in left hip TECHNIQUE: AP pelvis and lateral view of the left hip acquired. [facility] 2V, 12/27/2020, 10:33. FINDINGS: Bones: Patient is status post left hip arthroplasty, with hardware components in expected positions. The hip joint appears congruent. The visualized bony structures appear intact. Redemonstrated moderate degenerative changes of the right hip with joint space loss, osteophytosis and sclerosis of the opposing articular surfaces. Soft tissues: No suspicious soft tissue densities. IMPRESSION: No acute abnormality or significant change. Dictated by: Fuentes Hoffman M.D. on 02/05/2021 at 16:18 Approved by: Fuentes Hoffman M.D. on 02/05/2021 at 16:21
== END ==
PROVIDERS: PCP Family Medicine; Referring Provider Orthopaedic Surgery; Visit Provider Orthopaedic Surgery
DX: M25.552 Pain in left hip (principal)
CPT/HCPCS: 73502

== ENCOUNTER → 2021-02-07 11:13 | Outpatient (CLI) | payer MEDICARE, OTHER, SELFPAY ==
[2018-08-12 14:11] VITALS: BMI 31.6
--- NOTE | 2021-02-07 | DI.RAD.S_ITS ---
PROCEDURE: XR KNEE RT 4V INDICATIONS: Pain in right knee TECHNIQUE: 3 views of the knee were acquired. COMPARISON: [facility], , XR KNEE RT 3V, 06/24/2020, 12:10. FINDINGS: Bones: No acute fracture. Scattered degenerative subchondral sclerosis and spurring. Moderate narrowing of the lateral joint space, which has progressed slightly since 06/24/20. Soft tissues: Small joint effusion. Possible loose bodies projecting in the region of the intercondylar notch versus ununited osteophytes. IMPRESSION: Small joint effusion Moderate right knee joint degeneration, slightly progressed in the lateral compartment. Dictated by: Mark Hernandez M.D. on 02/07/2021 at 12:41 Approved by: Mark Hernandez M.D. on 02/07/2021 at 12:43
== END ==
PROVIDERS: PCP Family Medicine; Referring Provider Orthopaedic Surgery; Visit Provider Orthopaedic Surgery
DX: M25.561 Pain in right knee (principal); M17.11 Unilateral primary osteoarthritis, right knee; M25.461 Effusion, right knee
CPT/HCPCS: 73564

== ENCOUNTER → 2021-11-19 10:52 | Outpatient (CLI) | payer MEDICARE, OTHER, SELFPAY ==
[2018-08-12 14:11] VITALS: BMI 31.6
== END ==
PROVIDERS: PCP Family Medicine; Referring Provider Family Medicine; Visit Provider Family Medicine
DX: M25.561 Pain in right knee (principal); Z53.20 Procedure and treatment not carried out because of patient's decision for unspecified reasons

== ENCOUNTER → 2021-11-23 11:02 | Outpatient (CLI) | payer MEDICARE, OTHER, SELFPAY ==
[2018-08-12 14:11] VITALS: BMI 31.6
--- NOTE | 2021-11-23 11:04 | DI.MRI.S_ITS ---
PROCEDURE: MR KNEE RT WO CON INDICATIONS: PAIN IN RIGHT KNEE TECHNIQUE: Noncontrast sagittal PD fast spin echo and T2 fast spin echo with fat saturation, sagittal 3-D FLASH with fat saturation; coronal T1 spin echo and PD fast spin echo with fat saturation, and axial PD fast spin echo with fat saturation through the knee. COMPARISON: [facility], MR, MR KNEE RT WO CON, 07/01/2020, 12:06. FINDINGS: Image quality: Excellent. Menisci: Complex lateral meniscal tear involving the body and posterior horn, also extending into the anterior horn. Overall findings are similar to prior. The lateral meniscus is slightly extruded. The medial meniscus is intact, with some degenerative signal in the posterior horn, without discrete tear Cruciate ligaments: The PCL is intact. The ACL shows some early mucoid degeneration. Medial structures: The pes anserine tendons are intact. The semimembranosus is intact. Intact meniscal capsular junction. Intact MCL. Lateral structures: The LCL, IT band and biceps femoris tendon are intact. High signal is seen at the popliteal meniscal fascicles as before. Possible intrasubstance tear of the distal popliteus tendon. Anterior structures: There is prepatellar soft tissue edema. The extensor mechanism is otherwise intact. Trace fluid in Hoffa's fat pad. The medial retinaculum is intact. Bones and cartilage: High-grade chondromalacia of the lateral compartment, with focal bone marrow edema in the lateral tibial plateau, which is new compared to prior. Cuqx-[id number] chondromalacia of the patellofemoral and medial compartments. Of note, there is also focal fissuring and marrow edema of the patellar cartilage with underlying marrow edema at the superior aspect of the median ridge (8/14). Joint space loss, osteophyte formation, and subchondral deformities are most obvious in the lateral compartment. There are insertional ganglions along the tibial spines. Joint space: Mild to moderate joint effusion with evidence of synovitis. Moderately sized Mckeon's cyst. The Mckeon's cyst has some leakage. IMPRESSION: Overall similar complex lateral meniscal tear, involving the popliteal meniscal fascicles. However compared to 2020, degenerative changes in the lateral compartment has progressed, now with areas of full-thickness cartilage loss and subchondral deformities. Suspected tendinopathy of the popliteus attachment is also seen. In the anterior structures, there is focal full-thickness fissuring of the patellar cartilage at the superior aspect of the median ridge. There is also edema in the prepatellar space. Fujs-pj-soieegfs joint effusion. Moderate Mckeon's cyst with some leakage. Dictated by: James Henry M.D. on 11/24/2021 at 10:17 Approved by: James Henry M.D. on 11/24/2021 at 10:30
== END ==
PROVIDERS: PCP Family Medicine; Referring Provider Family Medicine; Visit Provider Family Medicine
DX: S83.271A Complex tear of lateral meniscus, current injury, right knee, initial encounter (principal); M25.461 Effusion, right knee; M25.561 Pain in right knee; M71.21 Synovial cyst of popliteal space [Baker], right knee
CPT/HCPCS: 73721

== ENCOUNTER 2021-12-29 10:26 | Emergency (ER) | payer MEDICARE, OTHER, SELFPAY ==
[2018-08-12 14:11] VITALS: BMI 31.6
[2021-12-29 10:57] VITALS: BP 109/67; PULSE 77; RESP 18; TEMP 37.1; O2SAT 96; BMI 32.5
[2021-12-29 11:29] LABS: Add Manual Diff / Slide Review NO; Basophils Absolute Auto 100 /uL (0-100); Eosinophils Absolute Auto 100 /uL (0-450); Eosinophils Percent Auto 1.8 % (2-4); Hematocrit 36.9 % (36-46); Hemoglobin 12.9 g/dL (12.0-16.0); Lymphocytes Absolute Auto 1700 /uL (1100-4500); Lymphocytes Percent Auto 20.7 % (25-40); Mean Corpuscular Hemoglobin 32.4 PG (26-34); Mean Corpuscular Volume 92.6 fL (80-100); Monocytes Absolute Auto 1000 /uL (0-900); Monocytes Percent Auto 11.8 % (3-14); Neutrophils Absolute Auto 5200 /uL (1500-7000); Neutrophils Percent Auto 64.7 % (50-75); Platelet Count 303 X10^3/uL (150-400); Red Blood Cell Count 3.98 X10^6/uL (4.0-5.2); Red Cell Distribution Width 12.8 % (11.6-14.8); White Blood Cell Count 8.1 X10^3/uL (4.5-11.0)
[2021-12-29 11:30] VITALS: BP 95/61; PULSE 73; RESP 18; O2SAT 94
[2021-12-29 11:40] LABS: Alanine Aminotransferase 54 IU/L (<35); Albumin 4.1 g/dL (3.5-5.0); Albumin Globulin Ratio 1.2 (1.0-2.8); Alkaline Phosphatase 69 U/L (38-126); Aspartate Aminotransferase 40 IU/L (14-36); BUN Creatinine Ratio 23.7 (6-22); Bilirubin Total 0.7 mg/dL (0.2-1.3); Blood Urea Nitrogen 18 mg/dL (7-17); Calcium 9.5 mg/dL (8.4-10.2); Carbon Dioxide 23 mmol/L (22-32); Chloride 102 mmol/L (98-107); Estimated Glomerular Filt Rate > 60 mL/min (>60); Globulin 3.3 g/dL (1.7-4.1); Glucose 107 mg/dL (80-110); HEMOLYSIS < 15 (0-50); Lipase 151 U/L (23-300); Potassium 3.5 mmol/L (3.4-5.1); Sodium 137 mmol/L (137-145); Total Protein 7.4 g/dL (6.3-8.2)
[2021-12-29 12:00] VITALS: BP 99/56; PULSE 73; O2SAT 95
--- NOTE | 2021-12-29 12:04 | DI.CT.S_ITS ---
PROCEDURE: CT ABDOMEN PELVIS W CON INDICATIONS: llq pain TECHNIQUE: After the administration of intravenous contrast, axial sections acquired from the lung bases to the pubic symphysis. Coronal and sagittal reformats were performed. For radiation dose reduction, the following was used: automated exposure control, adjustment of mA and/or kV according to patient size. COMPARISON: None. FINDINGS: Image quality: Excellent. Lung bases: Unremarkable. Heart: No significant findings. ABDOMEN: Liver: The liver is diffusely hypodense suggesting fatty infiltration. A low-density cystic lesion is present within the left hepatic lobe. Gallbladder: The gallbladder is not visualized and may be surgically absent. Biliary ducts: Unremarkable. Pancreas: Unremarkable. Spleen: Unremarkable. Adrenal Glands: Unremarkable. Kidneys and Ureters: Unremarkable. An exophytic cystic lesion is present in the lower pole of the left kidney. Stomach and Bowel: Stomach, small bowel loops, and colon are unremarkable. The appendix is thin walled and gas filled. There are extensive sigmoid colon diverticular outpouchings. Trace pericolonic fat stranding is present within the left lower quadrant (series 2/image 61). Peritoneum: No abnormal intraperitoneal fluid. No free air. Ventral Wall: No hernias. Abdominal Nodes: No retroperitoneal or mesenteric adenopathy by size criteria. Vessels: Aorta and inferior vena cava are normal in size. There are scattered atheromatous calcifications throughout the aorta and iliac arteries bilaterally. PELVIS: Pelvic Organs: The uterus in the left ovary are grossly unremarkable. There is a 3.8 cm low-density septated right ovarian cyst. Bladder: Unremarkable. Pelvic Nodes: No enlarged lymph nodes. Miscellaneous: No hernias are seen. Bones: Unremarkable. IMPRESSION: 1. Hepatic steatosis. 2. Acute non perforated diverticulitis. 3. Normal appendix. 4. 3.8 cm right ovarian cyst. This is considered abnormal for size in a postmenopausal patient. Nonemergent pelvic ultrasound is recommended to further characterize this finding. Dictated by: Geeta Ortiz M.D. on 12/29/2021 at 12:43 Approved by: Geeta Ortiz M.D. on 12/29/2021 at 12:47
--- NOTE | 2021-12-29 12:11 | ED_ITS ---
HPI - Abdominal Pain General Chief Complaint: Abdominal Pain Stated Complaint: L side abdominal pain Time Seen by Provider: 12/29/21 10:59 Source: patient Mode of arrival: Ambulatory History of Present Illness HPI narrative: Patient is a 66-year-old history of hyperlipidemia, CPOD, hypertension, presenting with left lower quadrant pain, she has is been ongoing for last 4 days. Started suprapubically and now is left lower quadrant she has no flank pain. No nausea vomiting. Noted to be slightly hypotensive blood pressure 95. She denies dizziness lightheadedness stroke palpitations. He has no fever or chills. Related Data Home Medications Medication Instructions Recorded Confirmed zolpidem 5 mg tablet 5 mg PO BEDTIME PRN Sleep ##0 05/29/16 08/12/18 rosuvastatin 10 mg tablet 10 mg PO DAILY 07/30/18 08/12/18 Previous Rx's Medication Instructions Recorded albuterol sulfate 90 mcg/actuation 1 puff inhalation Q6H PRN 08/16/18 aerosol inhaler shortness of breath or wheezing #18 grams amoxicillin 875 mg-potassium 1 tab PO BID #8 tabs 08/16/18 clavulanate 125 mg tablet chlorthalidone 25 mg tablet 25 mg PO DAILY #30 tabs 08/16/18 fluticasone propionate 50 1 inhalation inhalation BID #60 ea 08/16/18 mcg/actuation blister powder for inhalation (Flovent Diskus) losartan 50 mg tablet 50 mg PO BID #60 tabs 08/16/18 montelukast 10 mg tablet 10 mg PO DAILY #30 tabs 08/16/18 prednisone 20 mg tablet 40 mg PO DAILY #2 tabs 08/16/18 tiotropium bromide 18 mcg capsule 1 cap inhalation DAILY #30 08/16/18 with inhalation device (Spiriva inhalations with HandiHaler) ciprofloxacin HCl 500 mg tablet 500 mg PO BID #14 tabs 12/29/21 (Cipro) metronidazole 500 mg tablet 500 mg PO BID 7 days #14 tabs 12/29/21 Allergies Allergy/AdvReac Type Severity Reaction Status Date / Time No Known Drug Allergies Allergy Verified 08/12/18 10:18 Review of Systems Review of Systems Narrative: GENERAL: Denies chills, fatigue, malaise, fever, sweats, travel HEENT: Denies sinus pain, ear pain, sore throat, difficulty swallowing, neck pain RESPIRATORY: Denies dyspnea, cough, wheezing, hemoptysis, sputum. CARDIOVASCULAR: Denies chest pain, palpitations, orthopnea, edema GASTROINTESTINAL: See HPI : Denies dysuria, frequency, incontinence, hematuria, urinary retention, flank pain. MUSCULOSKELETAL: Denies weakness, joint pain, or bony pain SKIN: No rash, no erythema, no pruritus NEUROLOGIC: Denies weakness, dizziness, headache, numbness, change in speech, confusion PSYCHIATRIC: No concerning psychosocial issues. 12 point review of systems is negative except for those stated above and HPI Patient History Medical History Hypercholesteremia Hypertension Surgical History H/O foot surgery History of bilateral tubal ligation Hx laparoscopic cholecystectomy Family History Father Lung cancer Mother Lung cancer Social History household members: spouse Smoking Status: Former smoker alcohol intake: current Smoking Status: Former smoker alcohol intake frequency: a few times a week Substance Use Type: does not use Exam Initial Vital Signs Initial Vital Signs: Vital Signs Temperature 98.7 F 12/29/21 10:57 Pulse Rate 77 12/29/21 10:57 Respiratory Rate 18 12/29/21 10:57 Blood Pressure 109/67 12/29/21 10:57 Pulse Oximetry 96 12/29/21 10:57 Oxygen Delivery Method 12/29/21 10:57 GENERAL: Alert 66-year-old female and in no acute distress. HEENT: Head atraumatic,EOMI, pupils reactive, face symmetric, moist mucous membranes CARDIOVASCULAR: Regular rate and rhythm without murmurs, rubs or gallops. RESPIRATORY: Breath sounds equal bilaterally, no wheezes rales or rhonchi. ABDOMEN: Soft, left lower quadrant pain, : No CVA tenderness EXTREMITIES: Normal range of motion, no clubbing or edema. Neurovascularly intact NEUROLOGICAL: Alert and oriented x4.Normal gait and speech. SKIN: Warm, dry, no laceration, no petechiae, no rashes or lesions. Course Orders Ordered: Discontinued Medications Sodium Chloride (Normal Saline 0.9%) 1,000 mls @ 1,000 mls/hr IV BOLUS ONE Stop: 12/29/21 13:03 Last Infusion: 12/29/21 13:42 Dose: 0 mls/hr Documented By: Admin: 12/29/21 12:43 Dose: 1,000 mls/hr Documented By: AT Vital Signs Vital signs: Vital Signs - 8 hr 12/29/21 10:57 12/29/21 12:32 12/29/21 12:32 Temperature 98.7 F Pulse Rate 77 73 Respiratory Rate 18 Blood Pressure 109/67 104/60 Pulse Oximetry 96 98 Oxygen Delivery Method Room Air Room Air MDM - Abdominal Pain Lab Data Result diagrams: 12/29/21 11:22 12/29/21 11:22 Labs: Lab Results 12/29/21 12/29/21 Range/Units 11:22 11:22 WBC 8.1 (4.5-11.0) X10^3/uL RBC 3.98 L (4.0-5.2) X10^6/uL Hgb 12.9 (12.0-16.0) g/dL Hct 36.9 (36-46) % MCV 92.6 (80-100) fL MCH 32.4 (26-34) PG MCHC 35.0 (30-36) % RDW 12.8 (11.6-14.8) % Plt Count 303 (150-400) X10^3/uL Neut % (Auto) 64.7 (50-75) % Lymph % (Auto) 20.7 L (25-40) % [place] % (Auto) 11.8 (3-14) % Eos % (Auto) 1.8 L (2-4) % Baso % (Auto) 1.0 (0-2) % Neut # (Auto) 5200 (4853-0337) /uL Lymph # (Auto) 1700 (0359-5145) /uL [place] # (Auto) 1000 H (0-900) /uL Eos # (Auto) 100 (0-450) /uL Baso # (Auto) 100 (0-100) /uL Sodium 137 (137-145) mmol/L Potassium 3.5 (3.4-5.1) mmol/L Chloride 102 (98-107) mmol/L Carbon Dioxide 23 (22-32) mmol/L BUN 18 H (7-17) mg/dL Creatinine 0.76 (0.52-1.04) mg/dL Estimated GFR > 60 (>60) mL/min BUN/Creatinine Ratio 23.7 H (6-22) Glucose 107 (80-110) mg/dL Calcium 9.5 (8.4-10.2) mg/dL Total Bilirubin 0.7 (0.2-1.3) mg/dL AST 40 H (14-36) IU/L ALT 54 H (<35) IU/L Alkaline Phosphatase 69 (38-126) U/L Total Protein 7.4 (6.3-8.2) g/dL Albumin 4.1 (3.5-5.0) g/dL Globulin 3.3 (1.7-4.1) g/dL Albumin/Globulin Ratio 1.2 (1.0-2.8) Lipase 151 (23-300) U/L Point of care testing: Urine Dip Bedside Urine Glucose Negative Bedside Urine Bilirubin - Negative Bedside Urine Ketone - Negative Urine Specific [place] 1.010 Bedside Urine Occult Blood - Negative Bedside Urine pH 6.0 Bedside Urine Protein - Negative Bedside Urine Urobilinogen - Negative Bedside Urine Nitrite - Negative Bedside Urine Leukocytes - Negative Esterase Imaging Data CT scan - abdomen/pelvis: Radiologist's Impression: Alix Hernandez MR#: [id number] : 1955 Acct:[id number] Age/Sex: 66 / F Date of Service: 12/29/21 Loc: ED Accession Number: [id number] ?? Procedure: CT abdomen pelvis w con Ordering Provider: Bridgette Carlin D.O. PROCEDURE:? CT ABDOMEN PELVIS W CON ? INDICATIONS:? llq pain ? TECHNIQUE:? After the administration of intravenous contrast, axial sections acquired from the lung bases to the pubic symphysis.? Coronal and sagittal reformats were performed.? For radiation dose reduction, the following was used:? automated exposure control, adjustment of mA and/or kV according to patient size.? ? COMPARISON:? None. ? FINDINGS:? Image quality:? Excellent.? ? Lung bases:? Unremarkable. Heart:? No significant findings. ? ABDOMEN: Liver:? The liver is diffusely hypodense suggesting fatty infiltration.? A low- density cystic lesion is present within the left hepatic lobe. Gallbladder:? The gallbladder is not visualized and may be surgically absent.? ? Biliary ducts:? Unremarkable.? ? Pancreas:? Unremarkable.? ? Spleen:? Unremarkable.? ? Adrenal Glands:? Unremarkable.? ? Kidneys and Ureters:? Unremarkable.? ? An exophytic cystic lesion is present in the lower pole of the left kidney. ? Stomach and Bowel:? Stomach, small bowel loops, and colon are unremarkable.? The appendix is thin walled and gas filled.? There are extensive sigmoid colon diverticular outpouchings.? Trace pericolonic fat stranding is present within the left lower quadrant (series 2/image 61).? Peritoneum:? No abnormal intraperitoneal fluid.? No free air.? ? Ventral Wall: ? No hernias.? Abdominal Nodes:? No retroperitoneal or mesenteric adenopathy by size criteria.? Vessels:? Aorta and inferior vena cava are normal in size.? There are scattered atheromatous calcifications throughout the aorta and iliac arteries bilaterally. ? PELVIS: Pelvic Organs:? The uterus in the left ovary are grossly unremarkable.? There is a 3.8 cm low-density septated right ovarian cyst. Bladder:? Unremarkable.? ? Pelvic Nodes: No enlarged lymph nodes.? Miscellaneous: No hernias are seen. ? ? ? Bones:? Unremarkable.? IMPRESSION:? ? 1. Hepatic steatosis. ? 2. Acute non perforated diverticulitis. ? 3. Normal appendix. ? 4. 3.8 cm right ovarian cyst.? This is considered abnormal for size in a postmenopausal patient.? Nonemergent pelvic ultrasound is recommended to further characterize this finding.? ? ? Dictated by: Geeta Ortiz M.D. on 12/29/2021 at 12:43 ? ? Approved by: Geeta Ortiz M.D. on 12/29/2021 at 12:47 ? MDM Narrative Medical decision making narrative: Patient is found to have acute non perforated diverticulitis. She has no leukocytosis or fever. Will start her on outpatient antibiotics and pain management. Discharge Plan Departure Patient Disposition: Home Clinical Impression: Diverticulitis Instructions: DI for Diverticulitis Activity Restrictions/Additional Instructions: *You have been diagnosed with diverticulitis *What to do: At this time you do have diverticulitis. He can weakly treated with antibiotics and pain medication. *Continue to take medications as directed --> SENT TO [facility] Cipro 500 mg twice a day for 7 days Flagyl 500 mg 2 times a day for 7 days Tylenol 650 mg every 4-6 hours if needed for [id number] pain Ibuprofen 600 mg every 6 hours if needed for [id number] *Follow up with your primary care provider in 2-3 days or call [phone] *Return to ER if you should have increasing pain bloody stool nausea vomit or any new, worsening or concerning symptoms Prescriptions: New metronidazole 500 mg tablet 500 mg PO BID 7 Days Qty: 14 0RF ciprofloxacin HCl [Cipro] 500 mg tablet 500 mg PO BID Qty: 14 0RF No Action rosuvastatin 10 mg tablet 10 mg PO DAILY zolpidem 5 MG tablet 5 mg PO BEDTIME PRN (Reason: Sleep) Qty: 0 montelukast 10 mg Tablet 10 mg PO DAILY Qty: 30 0RF amoxicillin-pot clavulanate 875-125 mg tablet 1 tab PO BID Qty: 8 0RF prednisone 20 mg Tablet 40 mg PO DAILY Qty: 2 0RF Rx Instructions: 2 days left in a 5 day burst (given other doses in hospital) chlorthalidone 25 mg Tablet 25 mg PO DAILY Qty: 30 0RF albuterol sulfate 90 mcg/actuation HFA aerosol inhaler 1 puff INHALATION Q6H PRN (Reason: shortness of breath or wheezing) Qty: 18 0RF Spiriva with HandiHaler 18 mcg capsule, w/inhalation device 1 cap INHALATION DAILY Qty: 30 0RF Rx Instructions: puncture 1 cap using device; one dose = 2 inhalations Flovent Diskus 50 mcg/actuation blister with device 1 inhalation INHALATION BID Qty: 60 0RF Rx Instructions: Rinse mouth after each use to avoid thrush losartan 50 MG tablet 50 mg PO BID Qty: 60 0RF Referrals: Christina Marcano MD [Primary Care Provider] - Visit Report Forms: Patient Portal/API
[2021-12-29 12:32] VITALS: BP 104/60; PULSE 73; O2SAT 98
[2021-12-29] MEDS: SODIUM CHLORIDE 0.9% 1,000 ML 1000 ML IV (12:43)
[2021-12-29 13:00] VITALS: BP 103/64; PULSE 66; O2SAT 98
[2021-12-29 13:30] VITALS: BP 111/60; PULSE 66; O2SAT 97
== END 2021-12-29 13:42 | disposition home or self-care (01) ==
PROVIDERS: Emergency Provider Emergency Medicine; PCP Family Medicine
DX: K57.92 Diverticulitis of intestine, part unspecified, without perforation or abscess without bleeding (principal)
CPT/HCPCS: 36415; 74177; 80053; 81003; 83690; 85025; 96360; 99284; Q9967

== ENCOUNTER → 2022-01-08 10:52 | Outpatient (CLI) | payer MEDICARE, OTHER, SELFPAY ==
[2018-08-12 14:11] VITALS: BMI 31.6
--- NOTE | 2022-01-08 10:54 | DI.MG.S_ITS ---
BILATERAL DIGITAL SCREENING MAMMOGRAM 3D/2D WITH CAD: 01/08/2022 CLINICAL: Routine screening. Comparison is made to exams dated: 12/27/2020 mammogram, 12/05/2019 mammogram, and 11/08/2018 mammogram - [facility]. There are scattered areas of fibroglandular density in both breasts (category b / 25%-50% glandular tissue). Current study was also evaluated with a Computer Aided Detection (CAD) system. There is a benign focal asymmetry in the left breast. No significant masses, calcifications, or other findings are seen in either breast. There has been no significant interval change. IMPRESSION: BENIGN There is no mammographic evidence of malignancy. A 1 year screening mammogram is recommended. Based on the Tyrer Cuzick model (a risk assessment model) the patient's lifetime risk is 7.3% and her 10 year risk is 3.7%. According to the ACR, ACS, and NCCN guidelines, an annual breast MRI exam along with mammogram is recommended if the patient's lifetime risk is 20% or greater. This exam was interpreted at Station ID: [id number]. NOTE: For mammograms, a report in lay terms will be sent to the patient. Approximately 15% of breast malignancies will not be visualized mammographically. In the management of a palpable breast mass, a negative mammogram must not discourage biopsy of a clinically suspicious lesion. Electronically Signed By: James nelson/cain:01/08/2022 13:00:55 letter sent: Normal Exam ACR BI-RADS Category 2: Benign Finding(s) 3342F
== END ==
PROVIDERS: PCP Family Medicine; Referring Provider Family Medicine; Visit Provider Family Medicine
DX: Z12.31 Encounter for screening mammogram for malignant neoplasm of breast (principal)
CPT/HCPCS: 77063; 77067

== ENCOUNTER → 2022-04-24 10:44 | Outpatient (CLI) | payer MEDICARE, OTHER, SELFPAY ==
[2018-08-12 14:11] VITALS: BMI 31.6
[2022-04-24 11:54] LABS: Clostridium Difficile Tox PCR Negative for C. diff (Negative)
[2022-04-28 16:52] LABS: H. Pylori Antigen Stool Negative (Negative)
== END ==
PROVIDERS: PCP Family Medicine; Referring Provider Family Medicine; Visit Provider Family Medicine
DX: R19.7 Diarrhea, unspecified (principal); R11.0 Nausea
CPT/HCPCS: 87338; 87493

== ENCOUNTER → 2023-02-05 11:06 | Outpatient (CLI) | payer MEDICARE, OTHER, SELFPAY ==
[2023-01-13 15:36] VITALS: BMI 31.6
--- NOTE | 2023-02-05 | DI.MG.S_ITS ---
BILATERAL DIGITAL SCREENING MAMMOGRAM 3D/2D WITH CAD: 02/05/2023 CLINICAL: Routine screening. Comparison is made to exams dated: 01/08/2022 mammogram, 12/27/2020 mammogram, and 12/05/2019 mammogram - [facility]. There are scattered areas of fibroglandular density in both breasts (category b / 25%-50% glandular tissue). Current study was also evaluated with a Computer Aided Detection (CAD) system. There is a stable benign mass in the left breast. No significant masses, calcifications, or other findings are seen in either breast. There has been no significant interval change. IMPRESSION: BENIGN There is no mammographic evidence of malignancy. A 1 year screening mammogram is recommended. Based on the Tyrer Cuzick model (a risk assessment model) the patient's lifetime risk is 7.0% and her 10 year risk is 3.7%. According to the ACR, ACS, and NCCN guidelines, an annual breast MRI exam along with mammogram is recommended if the patient's lifetime risk is 20% or greater. This exam was interpreted at Station ID: [id number]. NOTE: For mammograms, a report in lay terms will be sent to the patient. Approximately 15% of breast malignancies will not be visualized mammographically. In the management of a palpable breast mass, a negative mammogram must not discourage biopsy of a clinically suspicious lesion. Electronically Signed By: Chris abel/cain:02/05/2023 14:45:25 letter sent: Normal Exam ACR BI-RADS Category 2: Benign Finding(s) 3342F
== END ==
PROVIDERS: PCP Family Medicine; Referring Provider Family Medicine; Visit Provider Family Medicine
DX: Z12.31 Encounter for screening mammogram for malignant neoplasm of breast (principal); Z80.3 Family history of malignant neoplasm of breast
CPT/HCPCS: 77063; 77067

== ENCOUNTER → 2023-12-30 12:19 | Outpatient (CLI) | payer MEDICARE, OTHER, SELFPAY ==
[2023-01-13 15:36] VITALS: BMI 31.6
--- NOTE | 2023-12-30 12:22 | DI.RAD.S_ITS ---
PROCEDURE: XR HIP W PEL IF DONE RT 2V INDICATIONS: HIP PAIN TECHNIQUE: 3 views of the hip were acquired. COMPARISON: [facility], , XR HIP W PEL IF DONE LT 2V, 02/05/2021, 13:30. FINDINGS: Bones: No fractures or dislocations. No suspicious bony lesions. The visualized pelvic ring appears intact. Moderate right hip joint space narrowing and juxta-articular osteophytosis with subchondral sclerosis. Limited views of the left hip demonstrate arthroplasty is intact with no perihardware lucency. Degenerative changes of the lower lumbar spine and bilateral SI joints. Soft tissues: No suspicious soft tissue calcifications or masses. IMPRESSION: 1. No acute bony abnormality. 2. Moderate right hip osteoarthritis, similar to slightly progressed compared prior dated February 05, 2021. Dictated by: Dionicio Bradley M.D. on 12/30/2023 at 17:13 Approved by: Dionicio Bradley M.D. on 12/30/2023 at 17:15
== END ==
PROVIDERS: PCP Family Medicine; Referring Provider Family Medicine; Visit Provider Family Medicine
DX: M16.11 Unilateral primary osteoarthritis, right hip (principal); M25.551 Pain in right hip
CPT/HCPCS: 73502

== ENCOUNTER → 2024-03-23 12:45 | Outpatient (CLI) | payer MEDICARE, OTHER, SELFPAY ==
[2023-01-13 15:36] VITALS: BMI 31.6
--- NOTE | 2024-03-23 12:48 | DI.MG.S_ITS ---
BILATERAL DIGITAL SCREENING MAMMOGRAM 3D/2D WITH CAD: 03/23/2024 CLINICAL: Routine screening. Comparison is made to exams dated: 02/05/2023 mammogram, 01/08/2022 mammogram, and 12/27/2020 mammogram - [facility]. There are scattered areas of fibroglandular density (category b / 25%-50% glandular tissue). Current study was also evaluated with a Computer Aided Detection (CAD) system. There is a stable benign mass in the left breast. There also are stable benign calcifications in the left breast. No significant masses, calcifications, or other findings are seen in either breast. There has been no significant interval change. IMPRESSION: BENIGN There is no mammographic evidence of malignancy. A 1 year screening mammogram is recommended. Based on the Tyrer Cuzick model (a risk assessment model) the patient's lifetime risk is 6.6% and her 10 year risk is 3.7%. According to the ACR, ACS, and NCCN guidelines, an annual breast MRI exam along with mammogram is recommended if the patient's lifetime risk is 20% or greater. This exam was interpreted at Station ID: [id number]. NOTE: For mammograms, a report in lay terms will be sent to the patient. Approximately 15% of breast malignancies will not be visualized mammographically. In the management of a palpable breast mass, a negative mammogram must not discourage biopsy of a clinically suspicious lesion. Electronically Signed By: Rj chand/cain:03/24/2024 16:42:32 letter sent: Normal Exam ACR BI-RADS Category 2: Benign
== END ==
PROVIDERS: PCP Family Medicine; Referring Provider Family Medicine; Visit Provider Family Medicine
DX: Z12.31 Encounter for screening mammogram for malignant neoplasm of breast (principal)
CPT/HCPCS: 77063; 77067

== ENCOUNTER → 2024-09-12 10:07 | Outpatient (CLI) | payer MEDICARE, OTHER, SELFPAY ==
[2023-01-13 15:36] VITALS: BMI 31.6
--- NOTE | 2024-09-12 10:10 | DI.RAD.S_ITS ---
PROCEDURE: XR KNEE RT 3V INDICATIONS: Unspecified osteoarthritis, unspecified site TECHNIQUE: Two views of the right knee were acquired. COMPARISON: [facility], [place], XR KNEE RT 4V, 02/07/2021, 11:11. FINDINGS: Bones: There are no osseous abnormalities. Joints: Total knee prosthesis is anatomically aligned. Small effusion noted Soft tissues: Normal IMPRESSION: Total knee prostheses unremarkable. Dictated by: Stas Guerrero M.D. on 09/13/2024 at 10:22 Approved by: Stas Guerrero M.D. on 09/13/2024 at 10:22
== END ==
PROVIDERS: PCP Family Medicine; Referring Provider Family Medicine; Visit Provider Family Medicine
DX: M19.90 Unspecified osteoarthritis, unspecified site (principal); M25.461 Effusion, right knee; M25.561 Pain in right knee; Z96.651 Presence of right artificial knee joint
CPT/HCPCS: 73562